=== PATIENT | male | born 1960 | race Caucasian/White ===

== ENCOUNTER 2017-11-27 12:04 | Outpatient (CLI) | payer MEDICAID ==
[2017-11-27 10:55] LABS: HEMATOCRIT 39.6 % (42.0-54.0); HEMOGLOBIN 13.8 g/dL (13.5-17.5); MCH 29.7 pg (26.0-34.0); MCHC 34.8 g/dL (31.0-37.0); MCV 85.3 fL (80.0-100.0); MEAN PLATELET VOLUME 9.3 fL (7.4-10.4); RBC 4.64 10x6/uL (4.20-6.10)
[~2017-11-27 12:04] MED LIST: ULORIC40 MG PO; ZYLOPRIM100 MG PO
[2017-12-13] MEDS ORDERED: HYZAAR 100-25 T1 TAB PO (11:57)
[2017-12-13] MEDS ORDERED: NORVASC5 MG PO (11:57)
[2017-12-13] MEDS ORDERED: METOPROLOL TART50 MG PO (11:57)
[2017-12-13] MEDS ORDERED: COLCRYS0.6 MG PO (11:58)
== END 2017-11-27 23:59 | disposition home or self-care (01) ==
LOC: D.OPS 12:04 → EDSTATUS 11-28 07:30 → D.SDCHOLD 11-28 07:30
PROVIDERS: Anesthesiology
DX: Z01.812 Encounter for preprocedural laboratory examination (principal); Z53.9 Procedure and treatment not carried out, unspecified reason

== ENCOUNTER 2017-12-15 05:00 | Day surgery (SDC) | payer BC ==
[2017-12-13 12:24] LABS: HEMATOCRIT 38.9 % (42.0-54.0); HEMOGLOBIN 13.7 g/dL (13.5-17.5); MCH 29.7 pg (26.0-34.0); MCHC 35.2 g/dL (31.0-37.0); MCV 84.2 fL (80.0-100.0); MEAN PLATELET VOLUME 9.1 fL (7.4-10.4); RBC 4.62 10x6/uL (4.20-6.10); RDW 13.6 % (11.5-14.5)
[2017-12-13 13:09] LABS: CALC OSMOLALITY 282 mosm/kg (275-300); CARBON DIOXIDE 26.3 mmol/L (21.0-32.0); CHLORIDE - SERUM 103 mmol/L (98-107); GLUCOSE 128 mg/dL (74-106); POTASSIUM - SERUM 3.6 mmol/L (3.5-5.1); SODIUM 140 mmol/L (136-145); UREA NITROGEN 18 mg/dL (7-18); eGFR NON AFRICAN AMERICAN 81 mL/min (90-120)
[~2017-12-15] VITALS: Ht 175.3 cm; Wt 99.1 kg
--- NOTE | ~2017-12-15 | OP ---
PATIENT NAME: JUAN ISABEL MEDICAL RECORD: [id number] :58 LOCATION:[facility] ADMISSION DATE: SURGEON: LESLI COLEBRT MD DATE OF OPERATION: 12/15/2017 SURGEON: Lesli Colbert MD PREOPERATIVE DIAGNOSIS: Pseudotumor cerebri with failed lumbar peritoneal shunt. POSTOPERATIVE DIAGNOSIS: Creation of ventriculoperitoneal shunt. PROCEDURE: Creation of ventriculoperitoneal shunt with high pressure valve. DESCRIPTION AND TECHNIQUE: After induction of general endotracheal anesthesia, the patient's scalp, neck, chest, abdomen were prepped and draped in usual sterile fashion. A curvilinear scalp incision was carried out around the right Kirstin's point. A counterincision was carried out over the right mastoid. An abdominal incision was carried out 2 cm above the umbilicus, left of midline, 2 cm. At the abdominal incision, dissection took place through the subcutaneous fat until the anterior rectus sheath was encountered. This was incised with Metzenbaum scissors. The rectus muscle was spread. Posterior rectus sheath was incised and then the peritoneum was incised as well. Several loops of small bowel were identified to confirm the peritoneal cavity. A Midas Moses drill was used to create a brenna hole at right side of Kirstin's point. A peritoneal catheter was tunneled from the scalp incision to the mastoid incision and then a tunneling device was used to tunnel from the mastoid incision to the abdominal incision. Peritoneal catheter was threaded through the tunneling device. Next, a ventricular catheter was attached to the level C valve. The festus was cauterized with bipolar cautery. A large brain needle was used to cannulate the right frontal horn without difficulty. There was brisk egress of CSF from the right frontal horn. The brain needle was removed and then the majority of the catheter was tunneled on the same tract into the right frontal horn. There was excellent egress of CSF from the peritoneal catheter tip. The galea was reapproximated with interrupted 2-0 Vicryl suture. The skin was closed with cyn. Counterincision of the fascia was closed with 3-0 Vicryl suture. Skin was closed with cyn at the abdominal incision. The anterior and posterior rectus sheaths were closed with 3-0 Vicryl suture, the subdermal layer closed with 3-0 Vicryl suture. The skin was closed with cyn. A sterile dressing was applied to all 3 wounds. The patient was awakened in good condition and taken to recovery. All counts were reported as correct. Estimated blood loss was minimal. TRANSINT:[id number] Voice Confirmation ID: [id number] DOCUMENT ID: [id number] LESLI COLBERT MD at 1606 CC: [id number] DICTATION DATE: 12/20/17 0905 EDGE BRUSHER: 12/20/17 1159 [facility] 12/16/[address] [address]
[~2017-12-15 05:00] MED LIST changes: +COLCRYS0.6 MG PO; +HYZAAR 100-25 T1 TAB PO; +METOPROLOL TART50 MG PO; +NORVASC5 MG PO
[2017-12-15 06:08] VITALS: BP 153/94; BMI 32.2
[2017-12-15 12:34] VITALS: Ht 175.3 cm; Wt 99.1 kg
[2017-12-15 18:02] VITALS: BP 139/73
[2017-12-15 19:41] VITALS: BP 144/78
[2017-12-15 23:35] VITALS: BP 123/77
[2017-12-16 04:22] VITALS: BP 133/78
[2017-12-16 07:42] VITALS: BP 146/88
[2017-12-16 12:24] VITALS: BP 147/95
[2017-12-16] MEDS ORDERED: HYDROCODONE-APA1 TAB PO (15:15)
== END 2017-12-16 16:34 | disposition home or self-care (01) ==
LOC: D.MS 05:00 → D.OPS 05:00 → D.SDCHOLD 05:00 → D.MS 05:00 → D.SDCHOLD 07:30 → EDSTATUS 10:00 → D.SDCHOLD 10:00 → D.MS 10:49 → D.SDCHOLD 10:49 → D.OPS 12-16 16:34 → D.MS 12-16 16:34
PROVIDERS: Anesthesiology
DX: G93.2 Benign intracranial hypertension (principal); R51 Headache; I10 Essential (primary) hypertension; K21.9 Gastro-esophageal reflux disease without esophagitis; Z01.812 Encounter for preprocedural laboratory examination

== ENCOUNTER 2018-05-03 09:43 | Outpatient (CLI) | payer BC ==
[~2018-05-03] VITALS: Ht 175.3 cm; Wt 97.7 kg
--- NOTE | ~2018-05-03 | HP ---
PATIENT: JUAN SINGER MEDICAL RECORD: [id number] ACCOUNT: [id number] LOCATION:[place] : 58 ADMISSION DATE: 05/03/18 HISTORY AND PHYSICAL EXAMINATION ADMITTING DIAGNOSES: 1. Angina. 2. Coronary artery disease. 3. Hypertension. 4. Hyperlipidemia. HISTORY OF PRESENT ILLNESS: Mr. Singer presents with anginal symptomatology in an increasing fashion. He has a history of high blood pressure, hyperlipidemia, family history of coronary artery disease. PHYSICAL EXAMINATION: GENERAL APPEARANCE: Well-nourished, well-developed, appears stated age. Level of distress, comfortable. PSYCHIATRIC: Mental status, alert, normal affect. Orientation, oriented to time, place and person. EYES: Lids and conjunctiva, noninjected. No discharge, no pallor. ENT: Lips, teeth, gums, normal dentition. Oropharynx, no cyanosis, no pallor. NECK: Carotid arteries, bilateral normal upstroke, no bruits, no thrills. JUGULAR VEINS: No jugular venous pressure or distention. CERVICAL LYMPH NODES: Nontender, nonenlarged. THYROID: Not enlarged. Nontender. No nodules. LUNGS: Respiratory effort, unlabored. CHEST: Normal curvature. No thoracic deformity. No chest wall tenderness. Percussion, resonant. Auscultation, clear. No wheezes, no rales, no rhonchi. CARDIOVASCULAR: Precordial exam, nondisplaced. No heaves or pericardial thrills. Rate and rhythm, regular. Heart sounds, normal S1, normal S2. No S3, no gallop, no rub. Systolic murmur, not heard. Diastolic murmur, not heard. EXTREMITIES: No cyanosis, no edema. Peripheral pulses, full and equal in all extremities, except as noted. No bruits appreciated. ABDOMEN: Soft, nondistended. Normal aorta. No bruit. Nontender. No masses. Liver, nontender, no hepatomegaly. Spleen, nontender, no splenomegaly. MUSCULOSKELETAL: No joint tenderness. No joint swelling. No erythema. NEUROLOGICAL: Normal gait, normal strength, normal tone. SKIN: Warm and dry. REVIEW OF SYSTEMS: The patient reports easy bruising but reports no swollen glands. The patient reports no fever, no night sweats, no significant weight gain, no significant weight loss. No significant exercise tolerance. The patient reports no dry eyes, no irritation, no vision change. Patient reports no difficulty hearing and no ear pain. Patient reports no frequent nose bleeds or nose and sinus problems. Patient reports on arm pain on exertion. No shortness of breath while lying down. No history of heart murmur. Patient reports no cough, no wheezing or coughing up blood. Patient reports no abdominal pain, no vomiting. Normal appetite. No diarrhea and not vomiting blood. No nausea and no constipation. Patient reports no incontinence. No difficulty urinating. No hematuria. No increased frequency. Patient reports no muscle aches. No weakness, no arthralgias, no back pain. No swelling of the extremities. Patient reports no abnormal mole, no jaundice, no rashes. Reports no loss of consciousness. No weakness and no numbness. No seizures, dizziness, or headaches. The patient reports no depression, no sleep disturbance, feeling HISTORY AND PHYSICAL [id number] JUAN SINGER ROSALINDA safe in a relationship and no alcohol abuse. Patient reports on fatigue. Reports no runny nose or sinus pressure. No itching, no hives, and no frequent sneezing. OVERALL IMPRESSION: Increasing anginal symptomatology, most likely is hemodynamically significant coronary artery disease. We will proceed with coronary angiography. Further care depends upon findings of the angiography. TRANSINT:[id number] Voice Confirmation ID: [id number] DOCUMENT ID: [id number] COTY ALVES MD at 1834 CC: [id number] DICTATION DATE: 05/03/18 1359 STUDIO SALES ASSOCIATE: 05/03/18 1407 DEP CLI 05/03/18 [place] [id number] [place] [id number]
--- NOTE | ~2018-05-03 | OP ---
PATIENT NAME: JUAN ISABEL MEDICAL RECORD: [id number] :58 LOCATION:[facility] ADMISSION DATE: SURGEON: COTY ALVES MD DATE OF OPERATION: 05/03/2018 PROCEDURES: 1. PTCA and stent of LAD. 2. Intravascular ultrasound of the LAD. 3. Intravascular ultrasound of the left circumflex. 4. Left heart catheterization. 5. Selective coronary angiography. 6. Left ventriculogram. INDICATION: Angina and coronary artery disease. PROCEDURE PERFORMED: After informed consent was obtained and after detailed explanation of risks, benefits as well as alternative therapies, the patient elected to proceed with angiogram and angioplasty. The right radial area was prepped and draped in normal sterile fashion. Right radial artery was cannulated via modified Seldinger technique with the placement of 6-Upper Sorbian sheath. All catheters exchanged this sheath. FINDINGS: The left ventriculogram was performed in standard 30-degree CHOE view, reveals good cardiac wall motion throughout all segments. Overall ejection fraction estimated 60%. SELECTIVE CORONARY ANGIOGRAPHY: 1. Left main is with no significant angiographic disease. 2. Right coronary has mild irregularities, but no flow-limiting stenosis. 3. Left circumflex has mild irregularities, questionable hazy area in the mid vessel, however, intravascular ultrasound reveals there is no greater than 20% to 30% stenosis. 4. The left anterior descending has greater than 80% stenosis confirmed by intravascular ultrasound in 2 areas of the mid vessel. PTCA AND STENT OF THE LAD: The stents used were 2.5 x 15 and 2.5 x 12, both Jaswinder drug-eluting stents. The result was 0% residual stenosis. OVERALL IMPRESSION: Successful PTCA and stent of the LAD going from 80% initial stenosis times 2 to 0% residual. TRANSINT:[id number] Voice Confirmation ID: [id number] DOCUMENT ID: [id number] COTY ALVES MD at 2294 CC: [id number] DICTATION DATE: 05/03/18 1344 MORTGAGE OR LOAN UNDERWRITER: 05/03/18 1353 DEP CLI 05/03/18 [place] [id number] [place] [id number]
--- NOTE | ~2018-05-03 | HEMODYNAMI ---
PATIENT:JUAN ISABEL ROSALINDA MEDICAL RECORD: [id number] : 58 LOCATION:[place] ADMISSION DATE: 05/03/18 Generatedon:05/03/201813:47 Patient name: JUAN ISABEL Patient #: [id number] SSN: : 1960 Date of study: 05/03/2018 Page: Of Hemodynamic Procedure Report Patient Data Patient Demographics Procedure consent was obtained First Name: JUAN Gender: Male Last Name: CHALO : 1960 Middle Initial: ROSALINDA Age: 58 year(s) Patient #: [id number] Race: Unknown Additional ID: [id number] Contact details [address]: [address] [place] [address] State: [place] City: [place] Zip code: [address] Past Medical History Allergies Allergen Reaction Date Comments Reported Other allergy 05/03/2018 CODEINE Admission Admission Data Admission Date: 05/03/2018 Admission Time: 9:43 Lab Results Lab Result Date: 05/03/2018 Lab Result Time: 0:00 Biochemistry Name Units Result Min Max BUN mg/dl 13 --(--*-)-- 7 18 Creatinine mg/dl 0.9 --(-*--)-- 0.6 1.3 CBC Name Units Result Min Max Hemoglobin g/dl 14 --(*---)-- 13.5 17.5 Procedure Procedure Types Cath Procedure Diagnostic Procedure LHC LH w/Coronaries FFR/IVUS Intra-Coronary IVUS Initial Sedation Charges Moderate Sedation up to 15 minutes PCI Procedure Coronary Stent Coronary Stent Initial Procedure Description Procedure Date Procedure Date: 05/03/2018 Procedure Start Time: 13:22 Procedure End Time: 13:46 Procedure Staff Name Function Edgar Clemente MD Performing Physician Donna Awan RT Monitor Amina Crow RT Scrub Arielle Bass RN Nurse Procedure Data Cath Procedure Fluoroscopy Diagnostic fluoroscopy Total fluoroscopy Time: 8.4 time: 8.4 min min Diagnostic fluoroscopy Total fluoroscopy dose: dose: 1107 mGy 1107 mGy Contrast Material Contrast Material Type Amount (ml) Isovue 300 97 Entry Location Entry Primary Successful Side Size Upsize Upsize Entry Closure Balderrama ccessful Closure Location (Fr) 1 (Fr) 2 (Fr) Remarks Device Remarks Radial Right 6 Fr Mechanical TR artery Short Compression Estimated blood loss: 10 ml Procedure Complications No complications Procedure Medications Medication Administration Route Dosage Oxygen etCO2 Nasal cannula 2 l/min Lidocaine 2% added to field 20 Heparin Flush Bag added to field 2 bags (1000units/500ml NS) 0.9% NaCl I.V. 100 ml/hr Radial Cocktail I.A. 1 syringe (Verapomil 2mg/Nitro 400mcg/Heparin 1500units) Versed I.V. 2 mg Fentanyl I.V. 100 mcg Versed I.V. 1 mg Fentanyl I.V. 50 mcg Versed I.V. 1 mg Fentanyl I.V. 50 mcg Heparin Bolus I.V. 4000 units Versed I.V. 1 mg Hemodynamics Rest HGB: 14 (g/dl) Heart Rate: 88 (bpm) Snapshots Pre Cath Intra NCS Post Cath Vital Signs Time Heart Resp SPO2 etCO2 NIBP (mmHg) Rhythm Pain Sedation Rate (ipm) (%) (mmHg) Status Level (bpm) 13:00:00 87 21 98 23.9 133/86(119) NSR 0 (11) 10(A) , No pain 13:04:10 77 18 97 28.4 124/82(101) NSR 0 (11) 10(A) , No pain 13:08:16 80 15 97 26.9 125/88(103) NSR 0 (11) 10(A) , No pain 13:12:22 81 17 98 28.4 117/85(107) NSR 0 (11) 10(A) , No pain 13:16:26 79 15 97 30.7 121/84(101) NSR 0 (11) 10(A) , No pain 13:20:31 81 16 98 29.2 117/83(100) NSR 0 (11) 10(A) , No pain 13:24:37 92 15 96 31.5 109/75(89) NSR 0 (11) 9(A) , No pain 13:28:39 92 12 95 31.4 114/81(96) NSR 0 (11) 9(A) , No pain 13:32:43 90 18 97 23.9 109/84(103) NSR 0 (11) 9(A) , No pain 13:36:44 89 16 97 37.4 101/79(97) NSR 0 (11) 9(A) , No pain 13:40:44 85 15 96 32.2 112/80(97) NSR 0 (11) 9(A) , No pain 13:44:46 87 16 99 41.2 118/82(100) NSR 0 (11) 10(A) , No pain Medications Time Medication Route Dose Verified Delivered Reason Not es Effectiveness by by 12:58:26 Oxygen etCO2 2 l/min Edgardory Lauraie used for Nasal Chyna Bass RN procedure cannula 12:58:33 Lidocaine 2% added 20ml Edgardory Hernández for local to vial Chyna Clemente MD anesthetic field 12:58:39 Heparin Flush added 2 bags Edgar Hernández used for Bag to Chyna Clemente MD procedure (1000units/500ml field NS) 12:58:48 0.9% NaCl I.V. 100 Edgar Guzmán Per physician ml/hr Chyna Bass RN 13:21:17 Versed I.V. 2 mg Edgar Guzmán for sedation Chyna Bass RN 13:21:24 Fentanyl I.V. 100 mcg Edgar Guzmán for sedation Chyna Bass RN 13:23:50 Radial Cocktail I.A. 1 Edgar Hernández for (Verapomil syringe Chyna Clemente MD vasodilation 2mg/Nitro 400mcg/Heparin 1500units) 13:25:11 Versed I.V. 1 mg Edgar Guzmán for sedation Chyna Bass RN 13:25:14 Fentanyl I.V. 50 mcg Edgar Guzmán for sedation Chyna Bass RN 13:28:18 Versed I.V. 1 mg Edgar Guzmán for sedation Chyna Bass RN 13:28:23 Fentanyl I.V. 50 mcg Edgar Lauraie for sedation Chyna Bass RN 13:29:26 Heparin Bolus I.V. 4000 Edgardory Lauraie for alejandro ified units Chyna Bass RN anticoagulation with dr clemente 13:39:22 Versed I.V. 1 mg Edgar Guzmán for sedation Chyna Bass RN Procedure Log Time Note 12:41:25 Buffie Bass RN sent for patient. Start room use. 12:41:26 Time tracking: Regular hours (M-F 7:00 - 5:00) 12:41:30 Plan of Care:Hemodynamics will remain stable., Cardiac rhythm will remain stable., Comfort level will be maintained., Respiratory function will remain adequate., Patient/ family verbilizes understanding of procedure., Procedure tolerated without complication., Recovers from procedure without complications.. 12:41:32 Signed procedure consent form obtained from patient. 12:47:41 Patient received from Pre/Post Procedure Room to CCL 2 Alert and oriented. Tansferred to table in Supine position. 12:47:42 Warm blankets applied, and ruben hugger turned on for patient comfort. 12:47:43 Correct patient and procedure confirmed by team. 12:47:44 ECG and BP/O2 sat monitors applied to patient. 12:58:26 Oxygen 2 l/min etCO2 Nasal cannula was administered by Arielle Bass RN; used for procedure; 12:58:33 Lidocaine 2% 20ml vial added to field was administered by Edgar Clemente MD; for local anesthetic; 12:58:39 Heparin Flush Bag (1000units/500ml NS) 2 bags added to field was administered by Edgar Clemente MD; used for procedure; 12:58:48 0.9% NaCl 100 ml/hr I.V. was administered by Arielle Bass RN; Per physician; 12:58:57 Vital chart was started 13:00:00 Baseline sample Acquired. 13:00:21 Rhythm: sinus rhythm 13:00:22 Full Disclosure recording started 13:00:43 H&P Date Dictated: 05/03/2018 Within 30 days and on chart., H&P Addendum completed by physician on day of procedure. (MUST COMPLETE FOR ALL OUTPATIENTS). 13:00:48 Pre-procedure instructions explained to patient. 13:00:50 Family in waiting room. 13:00:52 Patient NPO since Midnight. 13:01:07 Patient allergic to Other allergyCODEINE 13:01:30 Is the patient allergic to Iodine/contrast media? No. 13:01:32 Was the patient premedicated? Yes 13:01:35 Is patient on blood thinner?Yes 13:01:48 ACC The patient was administered the following blood thiners within the last 24 hours: ACCPlavix 13:01:50 Patient diabetic? No. 13:01:57 Previous problem with sedation/anesthesia? No ? 13:02:00 Snore? Yes 13:02:02 Sleep apnea? No 13:02:10 Dentures? No ? 13:02:15 Patient pain scale 0/10 ?. 13:02:21 IV patent on arrival in left forearm with 0.9% NaCl at [facility]. 13:03:01 Lab Result : BUN 13 mg/dl 13:03:01 Lab Result : Creatinine 0.9 mg/dl 13:03:01 Lab Result : Hemoglobin 14 g/dl 13:03:08 Lab results completed and on chart. 13:03:15 Right Radial & Right Groin area was prepped with chlora-prep and draped in sterile fashion 13:03:17 Alarms reviewed by R. N. 13:03:17 Alarms reviewed by R. N. 13:03:18 Sharps counted by scrub and verified by R.N. 13:03:20 Physician paged 13:20:01 Physician arrived 13:20:02 --------ALL STOP TIME OUT------ 13:20:03 Final Timeout: patient, procedure, and site verified with staff and physician. All members of the team are in agreement. 13:20:06 Right Radial & Right Groin site verified by team. 13:20:10 Physical assessment completed. ASA score P 2 - A patient with mild systemic disease as per Edgar Clemente MD. 13:20:16 Sedation plan: IV Moderate Sedation Medication:Versed, Fentanyl 13:20:51 Use device set Radial Dx or PCI 13:21:01 ACIST Syringe (91126) opened to sterile field. 13:21:01 Medline Cath Pack ([id number]) opened to sterile field. 13:21:03 Bag Decanter () opened to sterile field. 13:21:04 DIAGNOSTIC WIRE .035 260cm J wire (930625) opened to sterile field. 13:21:05 ACIST Hand Control (52942) opened to sterile field. 13:21:05 ACIST Manifold (07574) opened to sterile field. 13:21:07 Tegaderm 4 x 4 (1626W) opened to sterile field. 13:21:08 MBrace Wrist Support ([id number]) opened to sterile field. 13:21:17 Versed 2 mg I.V. was administered by Arielle Bass RN; for sedation; 13:21:18 TR BAND Standard ([id number]) opened to sterile field. 13:21:24 Fentanyl 100 mcg I.V. was administered by Arielle Bass RN; for sedation; 13:21:25 SHEATH 6Fr Prelude Radial ([id number]) opened to sterile field. 13:21:31 NEEDLE Cook 21G 4cm Radial (I80061) opened to sterile field. 13:21:35 Procedure started. 13:22:02 Local anesthetic to right radial artery with Lidocaine 2% by Edgar Clemente MD.INITIAL ACCESS ONLY 13::34 A 6 Fr Short sheath was inserted into the Right Radial artery 13::47 J wire advanced. 13:23:47 LV angiography performed. 13:23:50 Radial Cocktail (Verapomil 2mg/Nitro 400mcg/Heparin 1500units) 1 syringe I.A. was administered by Edgar Clemente MD; for vasodilation; 13:23:54 EF : 55 % 13:23:57 LCA angiography performed. 13:25:11 Versed 1 mg I.V. was administered by Arielle Bass RN; for sedation; 13:25:14 Fentanyl 50 mcg I.V. was administered by Arielle Bass RN; for sedation; 13:25:28 RCA angiography performed. 13:26:39 Catheter removed. 13:27:55 GUIDE 6FR EBU 3.5 catheter ([id number]) opened to sterile field. 13:27:56 Cookson [place] IVUS Catheter (80756H) opened to sterile field. 13:27:57 CHOICE PT Extra Support 182cm wire ([id number]) opened to sterile field. 13:27:58 INFLATOR Merit BasixCompak (EX2913) opened to sterile field. 13:28:02 Proceeding to intervention. 13:28:15 6 Fr ebu 3.5 guide catheter was inserted over the wire 13:28:18 Versed 1 mg I.V. was administered by Arielle Bass RN; for sedation; 13:28:22 CHOICE PT EX wire advanced. 13:28:23 Fentanyl 50 mcg I.V. was administered by Arielle Bass RN; for sedation; 13:28:33 Wire advanced across lesion. 13:28:33 Wire advanced across lesion. 13:29:00 IVUS catheter advanced over wire. 13:29:26 Heparin Bolus 4000 units I.V. was administered by Arielle Bass RN; for anticoagulation; verified with dr clemente 13:31:11 Wire redirected to lad. 13:37:51 IVUS catheter removed over wire. 13:39:22 Versed 1 mg I.V. was administered by Arielle Bass RN; for sedation; 13:39:39 Place stent Inflation Number: 1 A PARK RX 2.5 x 15 stent ([id number]) was prepped and advanced across the Dist LAD. The stent was deployed at 11 GARETH for 0:06 (min:sec). 13:39:45 Inflation number: 2 The stent balloon was then re-inflated across the Dist LAD to 13 GARETH for 0:00 (min:sec). 13:41:01 Place stent Inflation Number: 1 A PARK RX 2.5 x 12 stent ([id number]) was prepped and advanced across the Mid LAD. The stent was deployed at 17 GARETH for 0:10 (min:sec). 13:43:06 Wire removed. 13:43:07 Guide catheter removed. 13:43:25 Sheath removed intact; hemostasis achieved with Mechanical Compression to the Right Radial artery. 13:43:28 Procedure ended.(Physican Out) 13:43:52 Fluoroscopy time 08.40 minutes. 13:44:00 Fluoroscopy dose: 1107 mGy 13:44:00 Flurop Dose total: 1107 13:44:05 Contrast amount:Isovue 300 97ml. 13:44:12 TR band inflated with 11cc of air. 13:44:14 Insertion/operative site no bleeding no hematoma. 13:44:23 Post-op/insertion site Right Radial artery dressed using a 4 x 4 and Tegaderm. 13:44:26 Post Procedure Pulses reassessed and unchanged 13:44:29 Post-procedure physical assessment completed. ASA score P 2 - A patient with mild systemic disease as per Edgar Clemente MD. 13:44:34 Post procedure rhythm: unchanged. 13:44:39 Estimated blood loss: 10 ml 13:44:41 Post procedure instruction explained to patient.Patient verbalizes understanding. 13:45:26 Procedure type changed to Cath procedure, Diagnostic procedure, LHC, LHC w/Coronaries, FFR/IVUS, Intra-Coronary IVUS Initial, Sedation Charges, Moderate Sedation up to 15 minutes, PCI procedure, Coronary Stent, Coronary Stent Initial 13:45:31 Procedure and supply charges have been captured, reviewed, submitted and are correct. 13:46:43 Procedure Complication : No complications 13:46:47 Vital chart was stopped 13:46:47 See physician's report for complete and final results. 13:46:50 Report given to Pre/Post Procedure Room. 13:46:54 Patient transfered to Pre/Post Procedure Room with Stretcher. 13:46:57 Procedure ended. 13:46:57 Full Disclosure recording stopped 13:47:02 End room use (Document Last) 13:47:17 ACC-PCI Only Patient was given prescriptions, or instructed by Edgar Clemente MD to start/continue the following medications upon discharge: Plavix Intervention Summary Intervention Notes Time ActionType Lesion and Equipment Used Action# Pressure Duration Attributes 13:39:39 Place stent Dist LAD PARK RX 2.5 x 1 11 00:06 15 stent ([id number]) 13:39:45 Reinflate Dist LAD PARK RX 2.5 x 2 13 00:00 stent 15 stent balloon ([id number]) 13:41:01 Place stent Mid LAD PARK RX 2.5 x 1 17 00:10 12 stent ([id number]) Device Usage Item Name Manufacture Quantity Catalog Number Hospital Part Current Minimal Lot# / Charge Number Stock Stock Serial# Code ACIST Syringe Acist 1 85084 827571 006391 329642 20 (49808) Medical Systems Inc Medline Cath Cardinal 1 [id number] 098785 88244 786516 5 [facility] ([id number]) Bag Decanter Microtek 1 2001S 965682 05195 145223 5 () Medical Inc. DIAGNOSTIC WIRE St Brian 1 320864 779285 730796 617050 30 .035 260cm J wire (167406) ACIST Hand Acist 1 68055 332393 119206 317793 5 Control (37600) [employer] Inc ACIST Manifold Acist 1 25442 550891 970029 912475 5 (35918) Medical Systems Inc Tegaderm 4 x 4 3M 1 1626W 403900 513997 270391 5 (1626W) MBrace Wrist Advanced 1 140-0250-00 695464 23673 815348 5 Support Vascular ([id number]) Dynamics TR BAND Terumo 1 [id number] 925501 963116 119586 40 Standard ([id number]) SHEATH 6Fr Merit 1 [id number] 947446 325100 029907 5 Prelude Radial Medical ([id number]) NEEDLE Cook 21G Cook Medical 1 [id number] 962700 029892 391786 5 4cm Radial (T14544) GUIDE 6FR EBU Medtronic 1 [id number] 016171 26554 164834 3 3.5 catheter ([id number]) Cookson Cookson 1 09120W 832608 126714 936446 8 [place] IVUS Catheter (81201M) CHOICE PT Extra [place] 1 [id number] 379890 386671 203862 5 Support 182cm Scientific wire ([id number]) INFLATOR Merit Merit 1 PW1301 050352 473081 324453 15 BasixCompak Medical (UK4388) PARK RX 2.5 x Medtronic 1 [id number] 117086 9734422 538182 5 [id number] 15 stent ([id number]) PARK RX 2.5 x Medtronic 1 [id number] 159702 6554065 861967 5 [id number] 12 stent ([id number]) Signature Audit [place] Stage Time Signature Unsigned Intra-Procedure 05/03/2018 Donna Awan 1:47:50 PM RT(R) Signatures Monitor : Donna Awan Signature : RT Date : Time : [facility] [address] [place] [address]
[~2018-05-03 09:43] MED LIST changes: +HYDROCODONE-APA1 TAB PO
[2018-05-03] MEDS ORDERED: AMBIEN5 MG PO (10:21)
[2018-05-03 10:37] LABS: BASOPHILS 0.3 % (0-2); EOSINOPHILS 1.3 % (0-7); HEMATOCRIT 38.8 % (42.0-54.0); IMMATURE GRANULOCYTES 0.1 % (0-5); LYMPHOCYTES 20.2 % (15-50); MCHC 36.1 g/dL (31.0-37.0); MCV 83.3 fL (80.0-100.0); MEAN PLATELET VOLUME 9.3 fL (7.4-10.4); MONOCYTES 8.2 % (2-11); NEUTROPHILS 69.9 % (40-80); PLATELET COUNT 218 10x3/uL (130-400); RBC 4.66 10x6/uL (4.20-6.10); WBC 8.8 10x3/uL (4.8-10.8)
[2018-05-03 10:39] VITALS: BP 142/94; Ht 175.3 cm; Wt 97.7 kg
[2018-05-03 10:47] LABS: CALC OSMOLALITY 285 mosm/kg (275-300); CALCIUM 9.3 mg/dL (8.5-10.1); CHLORIDE - SERUM 105 mmol/L (98-107); CREATININE - SERUM 0.9 mg/dL (0.6-1.3); GLUCOSE 109 mg/dL (74-106); POTASSIUM - SERUM 3.5 mmol/L (3.5-5.1); SODIUM 143 mmol/L (136-145); UREA NITROGEN 13 mg/dL (7-18); eGFR NON AFRICAN AMERICAN > 90 mL/min (90-120)
[2018-05-03] MEDS ORDERED: PLAVIX75 MG PO (14:33)
== END 2018-05-03 18:00 | disposition home or self-care (01) ==
LOC: D.CATH 09:43
PROVIDERS: Internal Medicine Interventional Cardiology
DX: I25.119 Atherosclerotic heart disease of native coronary artery with unspecified angina pectoris (principal); I10 Essential (primary) hypertension; E78.5 Hyperlipidemia, unspecified; Z01.812 Encounter for preprocedural laboratory examination

== ENCOUNTER 2018-07-26 13:25 | Inpatient (IN) | payer BC ==
[~2018-07-26] VITALS: Ht 175.3 cm; Wt 99.1 kg
--- NOTE | ~2018-07-26 | MORECARE ---
CASE MANAGEMENT DISCHARGE SUMMARY PATIENT: JUAN ISABEL ROSALINDA UNIT: [id number] ADM DATE: 07/26/18 AGE: 58 : 58 SEX: M ROOM/BED: D.1213 AUTHOR: ANNA,DOC PHYSICIAN: REFERRING PHYSICIAN: DAVINA CLAROS MD DATE OF SERVICE: 08/03/18 Discharge Plan Patient Name: JUAN ISABEL Facility: [facility]:[place] : 1960 Planned Disposition: Home Anticipated Discharge Date: Discharge Date: 08/02/2018 Expected LOS: Initial Reviewer: [email or web address] Initial Review Date: 07/26/2018 Generated: 08/03/18 10:05 am Comments DCP- Discharge Planning Updated by [email or web address]: Elsy Maya on 07/30/18 11:[address] Patient Name: JUAN ISABEL Admission Status: ER Accout number: [id number] Admission Date: 07-26-2018 : 1960 Admission Diagnosis:CELLULITIS OF UNSPECIFIED PART OF LIMB Attending: DAVINA CLAROS Current LOS: 4 Anticipated DC Date: Planned Disposition: Home Primary Insurance: Consulted EXCHANGE Discharge Planning Comments: CM met with patient and at bedside after obtaining verbal consent. Patient plans on returning home upon discharge with his . He denies any discharge needs at this time. He states that he hasn't ever had to use any Home Health agency in the past. CM explained process if it is needed upon discharge. CM will continue to follow and assist as needed with discharge planning / needs. Intel Recruiter: Elsy Maya DCPIA - Discharge Planning Initial Assessment Updated by [email or web address]: Elsy Maya on 07/30/18 12:19 pm * Is the patient Alert and Oriented? Yes * How many steps to enter\exit or inside your home? * PCP Dr. Keller * [facility] * Preadmission Environment Home with Family * ADLs Independent * Equipment None * List name and contact numbers for known caregivers / representatives who currently or will assist patient after discharge: Rona Isabel - - [phone] * Verbal permission to speak to the caregivers and representatives has been obtained from the patient. Yes * Community resources currently utilized None * Additional services required to return to the preadmission environment? No * Can the patient safely return to the preadmission environment? Yes * Has this patient been hospitalized within the prior 30 days at any hospital? No Last DP export: 07/30/18 11:30 Patient Name: JUAN ISABEL Page [phone] at 0905 All edits/amendments must be made on the electronic document DICTATION DATE: 08/03/18904 SAWMILL HAND: DIONICIO 08/03/18904 RPT#: [id number] DC DATE:08/02/18 STATUS: DIS IN [facility] [address] [place] [address] END OF REPORT
--- NOTE | ~2018-07-26 | MORECARE ---
CASE MANAGEMENT DISCHARGE SUMMARY PATIENT: JUAN ISABEL ROSALINDA UNIT: [id number] ADM DATE: 07/26/18 AGE: 58 : 58 SEX: M ROOM/BED: D.1213 AUTHOR: BRYNN CASTILLO PHYSICIAN: REFERRING PHYSICIAN: DAVINA CLAROS MD DATE OF SERVICE: 07/30/18 Discharge Plan Patient Name: JUAN ISABEL [facility] : 1960 Planned Disposition: Home Anticipated Discharge Date: Discharge Date: Expected LOS: Initial Reviewer: [email or web address] Initial Review Date: 07/26/2018 Generated: 07/30/18 1:22 pm DCPIA - Discharge Planning Initial Assessment Updated by [email or web address]: Elsy Maya on 07/30/18 12:19 pm * Is the patient Alert and Oriented? Yes * How many steps to enter\exit or inside your home? * PCP Dr. Keller * [facility] * Preadmission Environment Home with Family * ADLs Independent * Equipment None * List name and contact numbers for known caregivers / representatives who currently or will assist patient after discharge: Rona Isabel - - [phone] * Verbal permission to speak to the caregivers and representatives has been obtained from the patient. Yes * Community resources currently utilized None * Additional services required to return to the preadmission environment? No * Can the patient safely return to the preadmission environment? Yes * Has this patient been hospitalized within the prior 30 days at any hospital? No Patient Name: JUAN ISABEL Page 10746 at 1223 All edits/amendments must be made on the electronic document DICTATION DATE: 07/30/18 1222 SALVAGE SUPERVISOR: DIONICIO 07/30/18 1222 RPT#: [id number] DC DATE: STATUS: ADM IN [facility] [address] [place] [address] END OF REPORT
--- NOTE | ~2018-07-26 | MORECARE ---
CASE MANAGEMENT DISCHARGE SUMMARY PATIENT: JUAN ISABEL ROSALINDA UNIT: [id number] ADM DATE: 07/26/18 AGE: 58 : 58 SEX: M ROOM/BED: D.1213 AUTHOR: ANNA,DOC PHYSICIAN: REFERRING PHYSICIAN: DAVINA CLAROS MD DATE OF SERVICE: 07/30/18 Discharge Plan Patient Name: JUAN ISABEL Facility: [facility]:[place] : 1960 Planned Disposition: Home Anticipated Discharge Date: Discharge Date: Expected LOS: Initial Reviewer: [email or web address] Initial Review Date: 07/26/2018 Generated: 07/30/18 1:30 pm Comments DCP- Discharge Planning Updated by [email or web address]: Elsy Maya on 07/30/18 11:[address] Patient Name: JUAN ISABEL Admission Status: ER Accout number: [id number] Admission Date: 07-26-2018 : 1960 Admission Diagnosis:CELLULITIS OF UNSPECIFIED PART OF LIMB Attending: DAVINA CLAROS Current LOS: 4 Anticipated DC Date: Planned Disposition: Home Primary Insurance: [employer] EXCHANGE Discharge Planning Comments: CM met with patient and at bedside after obtaining verbal consent. Patient plans on returning home upon discharge with his . He denies any discharge needs at this time. He states that he hasn't ever had to use any Home Health agency in the past. CM explained process if it is needed upon discharge. CM will continue to follow and assist as needed with discharge planning / needs. Materials Engineering Technician: Elsy Maya DCPIA - Discharge Planning Initial Assessment Updated by [email or web address]: Elsy Maya on 07/30/18 12:19 pm * Is the patient Alert and Oriented? Yes * How many steps to enter\exit or inside your home? * PCP Dr. Keller * [facility] * Preadmission Environment Home with Family * ADLs Independent * Equipment None * List name and contact numbers for known caregivers / representatives who currently or will assist patient after discharge: Rona Isabel - - [phone] * Verbal permission to speak to the caregivers and representatives has been obtained from the patient. Yes * Community resources currently utilized None * Additional services required to return to the preadmission environment? No * Can the patient safely return to the preadmission environment? Yes * Has this patient been hospitalized within the prior 30 days at any hospital? No Last DP export: 07/30/18 11:23 Patient Name: JUAN ISABEL Page 35727 at 1230 All edits/amendments must be made on the electronic document DICTATION DATE: 07/30/181228 CUSTOMER CARE REPRESENTATIVE: DIONICIO 07/30/181228 RPT#: [id number] DC DATE: STATUS: ADM IN [facility] [address] [place] [address] END OF REPORT
[~2018-07-26 13:25] MED LIST changes: +AMBIEN5 MG PO; +PLAVIX75 MG PO
[2018-07-26] MEDS ORDERED: AUGMENTIN 875-11 TAB PO (13:40)
[2018-07-26 14:15] LABS: BASOPHILS 0.4 % (0-2); EOSINOPHILS 2.3 % (0-7); HEMATOCRIT 36.5 % (42.0-54.0); IMMATURE GRANULOCYTES 0.2 % (0-5); LYMPHOCYTES 14.5 % (15-50); MCH 29.6 pg (26.0-34.0); MCHC 35.6 g/dL (31.0-37.0); MCV 83.1 fL (80.0-100.0); MEAN PLATELET VOLUME 9.7 fL (7.4-10.4); MONOCYTES 9.1 % (2-11); NEUTROPHILS 73.5 % (40-80); PLATELET COUNT 230 10x3/uL (130-400); RBC 4.39 10x6/uL (4.20-6.10); RDW 13.9 % (11.5-14.5); WBC 9.7 10x3/uL (4.8-10.8)
[2018-07-26 14:30] LABS: ALBUMIN 3.6 g/dL (3.4-5.0); ALKALINE PHOSPHATASE 56 U/L (46-116); ALT (SGPT) 78 U/L (10-68); BILIRUBIN - TOTAL 0.51 mg/dL (0.2-1.3); CALC OSMOLALITY 283 mosm/kg (275-300); CALCIUM 8.8 mg/dL (8.5-10.1); CARBON DIOXIDE 29.3 mmol/L (21.0-32.0); CHLORIDE - SERUM 102 mmol/L (98-107); CREATININE - SERUM 0.9 mg/dL (0.6-1.3); GLUCOSE 145 mg/dL (74-106); POTASSIUM - SERUM 3.3 mmol/L (3.5-5.1); PROTEIN - SERUM 7.8 g/dL (6.4-8.2); SODIUM 141 mmol/L (136-145); UREA NITROGEN 12 mg/dL (7-18); eGFR NON AFRICAN AMERICAN > 90 mL/min (90-120)
[2018-07-26 22:56] VITALS: BP 157/94
[2018-07-27] VITALS (7 sets, daily range): BP systolic 134–163; BP diastolic 76–101; Ht 175.3 cm; Wt 99.1 kg
[2018-07-27 05:48] LABS: BASOPHILS 0.3 % (0-2); EOSINOPHILS 3.4 % (0-7); HEMATOCRIT 33.7 % (42.0-54.0); HEMOGLOBIN 11.7 g/dL (13.5-17.5); IMMATURE GRANULOCYTES 0.1 % (0-5); LYMPHOCYTES 16.4 % (15-50); MCH 29.2 pg (26.0-34.0); MCHC 34.7 g/dL (31.0-37.0); MEAN PLATELET VOLUME 9.5 fL (7.4-10.4); MONOCYTES 9.2 % (2-11); NEUTROPHILS 70.6 % (40-80); PLATELET COUNT 207 10x3/uL (130-400); RBC 4.01 10x6/uL (4.20-6.10)
[2018-07-27 05:59] LABS: CALC OSMOLALITY 278 mosm/kg (275-300); CARBON DIOXIDE 29.2 mmol/L (21.0-32.0); CHLORIDE - SERUM 103 mmol/L (98-107); CREATININE - SERUM 0.8 mg/dL (0.6-1.3); GLUCOSE 145 mg/dL (74-106); POTASSIUM - SERUM 3.4 mmol/L (3.5-5.1); SODIUM 139 mmol/L (136-145); eGFR NON AFRICAN AMERICAN > 90 mL/min (90-120)
[2018-07-27 06:02] LABS: UREA NITROGEN 7 mg/dL (7-18)
[2018-07-27 06:12] LABS: WBC 7.1 10x3/uL (4.8-10.8)
[2018-07-27 10:46] LABS: % SATURATION 10 % (15-55); IRON 24 ug/dl (35-150); TOTAL IRON BIND CAPACITY 223 ug/dl (260-445); UNSAT IRON BIND CAPACITY 199 ug/dl (150-375)
[2018-07-27 18:49] LABS: APPEARANCE CLEAR (CLEAR); COLOR YELLOW (YELLOW); NITRITE NEGATIVE (NEGATIVE); SPECIFIC GRAVITY 1.015 (1.005-1.020)
[2018-07-27 18:50] LABS: BILIRUBIN NEGATIVE (NEGATIVE); GLUCOSE NEGATIVE (NEGATIVE); KETONE NEGATIVE (NEGATIVE); PROTEIN NEGATIVE (NEGATIVE); UROBILINOGEN NORMAL (NORMAL)
[2018-07-28 00:07] VITALS: BP 143/83
[2018-07-28 05:29] VITALS: BP 147/85
[2018-07-28 06:47] LABS: BASOPHILS 0.3 % (0-2); EOSINOPHILS 2.3 % (0-7); HEMATOCRIT 33.7 % (42.0-54.0); HEMOGLOBIN 11.7 g/dL (13.5-17.5); IMMATURE GRANULOCYTES 0.4 % (0-5); LYMPHOCYTES 14.7 % (15-50); MCH 29.4 pg (26.0-34.0); MCHC 34.7 g/dL (31.0-37.0); MCV 84.7 fL (80.0-100.0); MEAN PLATELET VOLUME 9.4 fL (7.4-10.4); MONOCYTES 13.9 % (2-11); NEUTROPHILS 68.4 % (40-80); PLATELET COUNT 196 10x3/uL (130-400); RBC 3.98 10x6/uL (4.20-6.10); RDW 14.1 % (11.5-14.5); WBC 7.7 10x3/uL (4.8-10.8)
[2018-07-28 07:04] LABS: CALC OSMOLALITY 277 mosm/kg (275-300); CALCIUM 8.3 mg/dL (8.5-10.1); CHLORIDE - SERUM 103 mmol/L (98-107); CREATININE - SERUM 0.8 mg/dL (0.6-1.3); GLUCOSE 119 mg/dL (74-106); POTASSIUM - SERUM 3.7 mmol/L (3.5-5.1); SODIUM 139 mmol/L (136-145); eGFR NON AFRICAN AMERICAN > 90 mL/min (90-120)
[2018-07-28 07:07] LABS: UREA NITROGEN 10 mg/dL (7-18)
[2018-07-28 07:18] VITALS: BP 130/85
[2018-07-28 07:22] LABS: FOLATE (FOLIC ACID) - SERUM 19.9 ng/mL (>3.0)
[2018-07-28 11:14] VITALS: BP 119/72
[2018-07-28 20:09] VITALS: BP 130/85
[2018-07-29 00:03] VITALS: BP 128/77
[2018-07-29 04:45] VITALS: BP 141/77
[2018-07-29 05:07] LABS: BASOPHILS 0.4 % (0-2); EOSINOPHILS 2.9 % (0-7); HEMATOCRIT 32.7 % (42.0-54.0); HEMOGLOBIN 11.3 g/dL (13.5-17.5); IMMATURE GRANULOCYTES 0.1 % (0-5); LYMPHOCYTES 17.3 % (15-50); MCH 29.3 pg (26.0-34.0); MCHC 34.6 g/dL (31.0-37.0); MCV 84.7 fL (80.0-100.0); MEAN PLATELET VOLUME 9.8 fL (7.4-10.4); MONOCYTES 12.3 % (2-11); PLATELET COUNT 209 10x3/uL (130-400); RBC 3.86 10x6/uL (4.20-6.10); RDW 14.2 % (11.5-14.5); WBC 7.3 10x3/uL (4.8-10.8)
[2018-07-29 05:31] LABS: CALC OSMOLALITY 278 mosm/kg (275-300); CALCIUM 8.5 mg/dL (8.5-10.1); CHLORIDE - SERUM 103 mmol/L (98-107); CREATININE - SERUM 0.9 mg/dL (0.6-1.3); GLUCOSE 131 mg/dL (74-106); POTASSIUM - SERUM 3.5 mmol/L (3.5-5.1); SODIUM 139 mmol/L (136-145); UREA NITROGEN 10 mg/dL (7-18); eGFR NON AFRICAN AMERICAN > 90 mL/min (90-120)
[2018-07-29 07:05] VITALS: BP 126/79
[2018-07-29 11:11] VITALS: BP 122/74
[2018-07-29 15:31] VITALS: BP 129/86
[2018-07-29 20:00] VITALS: BP 128/87
[2018-07-30 00:16] VITALS: BP 148/84
[2018-07-30 04:30] VITALS: BP 126/79
[2018-07-30 05:25] LABS: BASOPHILS 0.3 % (0-2); EOSINOPHILS 3.2 % (0-7); HEMATOCRIT 33.1 % (42.0-54.0); HEMOGLOBIN 11.4 g/dL (13.5-17.5); IMMATURE GRANULOCYTES 0.4 % (0-5); MCH 29.4 pg (26.0-34.0); MCHC 34.4 g/dL (31.0-37.0); MCV 85.3 fL (80.0-100.0); MEAN PLATELET VOLUME 9.3 fL (7.4-10.4); MONOCYTES 11.9 % (2-11); NEUTROPHILS 63.2 % (40-80); PLATELET COUNT 196 10x3/uL (130-400); RBC 3.88 10x6/uL (4.20-6.10); RDW 14.3 % (11.5-14.5)
[2018-07-30 05:49] LABS: CALC OSMOLALITY 282 mosm/kg (275-300); CALCIUM 8.3 mg/dL (8.5-10.1); CARBON DIOXIDE 30.7 mmol/L (21.0-32.0); CHLORIDE - SERUM 105 mmol/L (98-107); CREATININE - SERUM 0.8 mg/dL (0.6-1.3); GLUCOSE 111 mg/dL (74-106); POTASSIUM - SERUM 3.9 mmol/L (3.5-5.1); SODIUM 142 mmol/L (136-145); UREA NITROGEN 11 mg/dL (7-18); eGFR NON AFRICAN AMERICAN > 90 mL/min (90-120)
[2018-07-30 07:45] VITALS: BP 130/94
[2018-07-30 11:12] VITALS: BP 134/80
[2018-07-30 17:59] VITALS: BP 144/78
[2018-07-30 19:40] VITALS: BP 148/81
[2018-07-31 00:54] VITALS: BP 140/83
[2018-07-31 04:55] VITALS: BP 131/90
[2018-07-31 06:03] LABS: BASOPHILS 0.3 % (0-2); EOSINOPHILS 3.1 % (0-7); HEMATOCRIT 32.4 % (42.0-54.0); HEMOGLOBIN 11.2 g/dL (13.5-17.5); IMMATURE GRANULOCYTES 0.3 % (0-5); LYMPHOCYTES 18.5 % (15-50); MCH 29.3 pg (26.0-34.0); MCHC 34.6 g/dL (31.0-37.0); MCV 84.8 fL (80.0-100.0); MEAN PLATELET VOLUME 9.2 fL (7.4-10.4); MONOCYTES 8.9 % (2-11); NEUTROPHILS 68.9 % (40-80); PLATELET COUNT 204 10x3/uL (130-400); RBC 3.82 10x6/uL (4.20-6.10); WBC 6.8 10x3/uL (4.8-10.8)
[2018-07-31 06:14] LABS: CALC OSMOLALITY 277 mosm/kg (275-300); CALCIUM 8.5 mg/dL (8.5-10.1); CARBON DIOXIDE 30.7 mmol/L (21.0-32.0); CHLORIDE - SERUM 101 mmol/L (98-107); CREATININE - SERUM 0.8 mg/dL (0.6-1.3); GLUCOSE 119 mg/dL (74-106); POTASSIUM - SERUM 3.6 mmol/L (3.5-5.1); SODIUM 139 mmol/L (136-145); UREA NITROGEN 11 mg/dL (7-18); eGFR NON AFRICAN AMERICAN > 90 mL/min (90-120)
[2018-07-31 07:40] VITALS: BP 139/87
[2018-07-31 11:07] VITALS: BP 144/84
[2018-07-31 15:24] VITALS: BP 143/88
[2018-07-31 19:15] VITALS: BP 130/88
[2018-08-01] VITALS: BP 132/88
[2018-08-01 04:50] VITALS: BP 135/90
[2018-08-01 06:14] LABS: BASOPHILS 0.5 % (0-2); HEMATOCRIT 33.5 % (42.0-54.0); HEMOGLOBIN 11.5 g/dL (13.5-17.5); IMMATURE GRANULOCYTES 0.3 % (0-5); LYMPHOCYTES 18.6 % (15-50); MCH 29.2 pg (26.0-34.0); MCHC 34.3 g/dL (31.0-37.0); MEAN PLATELET VOLUME 9.4 fL (7.4-10.4); MONOCYTES 11.1 % (2-11); NEUTROPHILS 66.5 % (40-80); PLATELET COUNT 228 10x3/uL (130-400); RBC 3.94 10x6/uL (4.20-6.10); RDW 13.8 % (11.5-14.5); WBC 6.3 10x3/uL (4.8-10.8)
[2018-08-01 06:29] LABS: CALC OSMOLALITY 278 mosm/kg (275-300); CALCIUM 8.6 mg/dL (8.5-10.1); CARBON DIOXIDE 28.5 mmol/L (21.0-32.0); CHLORIDE - SERUM 103 mmol/L (98-107); CREATININE - SERUM 0.8 mg/dL (0.6-1.3); GLUCOSE 115 mg/dL (74-106); POTASSIUM - SERUM 3.5 mmol/L (3.5-5.1); SODIUM 140 mmol/L (136-145); UREA NITROGEN 10 mg/dL (7-18); eGFR NON AFRICAN AMERICAN > 90 mL/min (90-120)
[2018-08-01 08:18] VITALS: BP 156/88
[2018-08-01 11:39] VITALS: BP 159/82
[2018-08-01 17:06] VITALS: BP 162/93
[2018-08-01 19:59] VITALS: BP 149/93
[2018-08-02 00:26] VITALS: BP 157/92
[2018-08-02 04:25] VITALS: BP 147/81
[2018-08-02 07:30] VITALS: BP 140/89
[2018-08-02 11:08] VITALS: BP 122/86
[2018-08-02 13:41] LABS: BASOPHILS 0.4 % (0-2); EOSINOPHILS 2.1 % (0-7); HEMATOCRIT 36.9 % (42.0-54.0); HEMOGLOBIN 12.9 g/dL (13.5-17.5); IMMATURE GRANULOCYTES 0.8 % (0-5); LYMPHOCYTES 20.2 % (15-50); MCH 29.7 pg (26.0-34.0); MEAN PLATELET VOLUME 9.7 fL (7.4-10.4); MONOCYTES 10.4 % (2-11); NEUTROPHILS 66.1 % (40-80); PLATELET COUNT 264 10x3/uL (130-400); RBC 4.34 10x6/uL (4.20-6.10); WBC 7.8 10x3/uL (4.8-10.8)
[2018-08-02 14:11] LABS: ALBUMIN 3.4 g/dL (3.4-5.0); ALKALINE PHOSPHATASE 58 U/L (46-116); ALT (SGPT) 56 U/L (10-68); BILIRUBIN - TOTAL 0.47 mg/dL (0.2-1.3); CALC OSMOLALITY 276 mosm/kg (275-300); CALCIUM 8.9 mg/dL (8.5-10.1); CARBON DIOXIDE 27.9 mmol/L (21.0-32.0); CHLORIDE - SERUM 100 mmol/L (98-107); CREATININE - SERUM 0.8 mg/dL (0.6-1.3); GLUCOSE 125 mg/dL (74-106); POTASSIUM - SERUM 3.5 mmol/L (3.5-5.1); PROTEIN - SERUM 7.6 g/dL (6.4-8.2); SODIUM 138 mmol/L (136-145); UREA NITROGEN 12 mg/dL (7-18); eGFR NON AFRICAN AMERICAN > 90 mL/min (90-120)
[2018-08-02] MEDS ORDERED: KEFLEX500 MG PO (14:36)
[2018-08-02] MEDS ORDERED: VIBRAMYCIN 100100 MG PO (14:36)
[2018-08-02 15:39] VITALS: BP 129/89
== END 2018-08-02 16:41 | disposition home or self-care (01) | DRG 603 ==
LOC: D.ER 13:25 → D.M3 16:54 → D.EDHOLD 16:54 → D.M3 20:33
PROVIDERS: Emergency Medicine; Family Medicine; Internal Medicine Nephrology
DX: L03.116 Cellulitis of left lower limb (principal); G91.2 (Idiopathic) normal pressure hydrocephalus; L03.115 Cellulitis of right lower limb; K21.9 Gastro-esophageal reflux disease without esophagitis; I10 Essential (primary) hypertension; E78.5 Hyperlipidemia, unspecified; I25.10 Atherosclerotic heart disease of native coronary artery without angina pectoris; Z95.5 Presence of coronary angioplasty implant and graft; L40.9 Psoriasis, unspecified; D64.9 Anemia, unspecified; M10.9 Gout, unspecified; E87.6 Hypokalemia

== ENCOUNTER 2018-12-13 10:09 | Outpatient (CLI) | payer BC ==
[~2018-12-13] VITALS: Ht 175.3 cm; Wt 102.3 kg
--- NOTE | ~2018-12-13 | HEMODYNAMI ---
PATIENT:JUAN ISABEL ROSALINDA MEDICAL RECORD: [id number] : 58 LOCATION:[facility] ADMISSION DATE: 12/13/18 Generatedon:12/13/201812:19 Patient name: JUAN ISABEL Patient #: [id number] SSN: : 1960 Date of study: 12/13/2018 Page: Of Hemodynamic Procedure Report Patient Data Patient Demographics Procedure consent was obtained First Name: JUAN Gender: Male Last Name: CHALO : 1960 Middle Initial: ROSALINDA Age: 58 year(s) Patient #: [id number] Race: Unknown Additional ID: [id number] Contact details [address]: [address] [place] [address] State: [place] City: [place] Zip code: [address] Past Medical History Allergies Allergen Reaction Date Comments Reported Other allergy 05/03/2018 CODEINE Admission Admission Data Admission Date: 12/13/2018 Admission Time: 10:09 Procedure Procedure Types Cath Procedure Diagnostic Procedure LHC LHC w/Coronaries Procedure Description Procedure Date Procedure Date: 12/13/2018 Procedure Start Time: 12:09 Procedure End Time: 12:15 Procedure Staff Name Function Edgar Clemente MD Performing Physician Jose M Montejo RT Monitor Lizzie Rowe RT Scrub Mary Serrano RN Nurse Procedure Data Cath Procedure Fluoroscopy Diagnostic fluoroscopy Total fluoroscopy Time: 1 time: 1 min min Diagnostic fluoroscopy Total fluoroscopy dose: 493 dose: 493 mGy mGy Contrast Material Contrast Material Type Amount (ml) Isovue 300 57 Entry Location Entry Primary Successful Side Size Upsize Upsize Entry Closure Balderrama ccessful Closure Location (Fr) 1 (Fr) 2 (Fr) Remarks Device Remarks Radial Right 6 Fr Mechanical artery Short Compression Estimated blood loss: 5 ml Diagnostic catheters Device Type Used For End Catheter Placement DIAGNOSTIC [place] 110cm 5 Multi-vessel Fr catheter ([id number]) Angiography Procedure Complications No complications Procedure Medications Medication Administration Route Dosage 0.9% NaCl I.V. 100 ml/hr Oxygen etCO2 Nasal cannula 2 l/min Lidocaine 2% added to field 20 Heparin Flush Bag added to field 2 bags (1000units/500ml NS) Radial Cocktail added to field 1 syringe (Verapomil 2mg/Nitro 400mcg/Heparin 1500units) Versed I.V. 2 mg Fentanyl I.V. 50 mcg Versed I.V. 2 mg Fentanyl I.V. 50 mcg Hemodynamics Rest Heart Rate: 78 (bpm) Pressure Samples Time Site Value (mmHg) Purpose Heart Use Rate(bpm) 12:11 LV 114/26,22 Snapshot 95 Snapshots Pre Cath Intra NCS Post Cath Vital Signs Time Heart Resp SPO2 etCO2 NIBP (mmHg) Rhythm Pain Sedation Rate (ipm) (%) (mmHg) Status Level (bpm) 11:53:14 76 13 99 38.4 144/100(116) NSR 0 (11) 10(A) , No pain 11:57:24 77 10 100 36.2 140/98(125) NSR 0 (11) 10(A) , No pain 12:01:34 77 14 98 42.9 136/95(115) NSR 0 (11) 10(A) , No pain 12:05:46 76 15 97 40.7 123/97(122) NSR 0 (11) 10(A) , No pain 12:09:54 78 17 97 40 117/93(114) NSR 0 (11) 10(A) , No pain 12:13:55 86 17 97 42.2 116/90(110) NSR 0 (11) 9(A) , No pain Medications Time Medication Route Dose Verified Delivered Reason Notes E ffectiveness by by 11:52:20 0.9% NaCl I.V. 100 Edgar Mary used for ml/hr Chyna Serrano donor center technician 11:52:27 Oxygen etCO2 2 l/min Edgar Mary used for Nasal Chyna Serrano procedure cannula RN 11:52:32 Lidocaine 2% added 20ml Edgar Hernández for local to vial Chyna Clemente MD anesthetic field 11:52:36 Heparin Flush added 2 bags Edgar Hernández used for Bag to Chyna Clemente MD procedure (1000units/500ml field NS) 11:52:43 Radial Cocktail added 1 Edgar Hernández used for (Verapomil to syringe Chyna Clemente MD procedure 2mg/Nitro field 400mcg/Heparin 1500units) 12:06:59 Versed I.V. 2 mg Edgar Mullinsa for Chyna Serrano sedation RN 12:07:04 Fentanyl I.V. 50 mcg Edgar Hernandez for Chyna Serrano sedation RN 12:12:24 Fentanyl I.V. 50 mcg Edgar Hernandez for Chyna Serrano sedation RN 12:12:24 Versed I.V. 2 mg Edgar Hernandez for Chyna Serrano sedation motor vehicle compliance analyst Log Time Note 11:46:13 Diagnostic Cath Status : Elective 11:46:42 Mary Serrano RN sent for patient. Start room use. 11:46:43 Time tracking: Regular hours (M-F 7:00 - 5:00) 11:46:47 Plan of Care:Hemodynamics will remain stable., Cardiac rhythm will remain stable., Comfort level will be maintained., Respiratory function will remain adequate., Patient/ family verbilizes understanding of procedure., Procedure tolerated without complication., Recovers from procedure without complications.. 11:52:12 Vital chart was started 11:52:20 0.9% NaCl 100 ml/hr I.V. was administered by Mary Serrano RN; used for procedure; 11:52:27 Oxygen 2 l/min etCO2 Nasal cannula was administered by Mary Serrano RN; used for procedure; 11:52:32 Lidocaine 2% 20ml vial added to field was administered by Edgar Clemente MD; for local anesthetic; 11:52:36 Heparin Flush Bag (1000units/500ml NS) 2 bags added to field was administered by Edgar Clemente MD; used for procedure; 11:52:43 Radial Cocktail (Verapomil 2mg/Nitro 400mcg/Heparin 1500units) 1 syringe added to field was administered by Edgar Clemente MD; used for procedure; 11:57:13 Patient received from Pre/Post Procedure Room to CCL 1 Alert and oriented. Tansferred to table in Supine position. 11:57:14 Warm blankets applied, and ruben hugger turned on for patient comfort. 11:57:15 Correct patient and procedure confirmed by team. 11:57:15 Correct patient and procedure confirmed by team. 11:57:16 Signed procedure consent form obtained from patient. 11:57:18 Baseline sample Acquired. :57:18 ECG and BP/O2 sat monitors applied to patient. 11:57:21 Rhythm: sinus rhythm 11:57:23 Full Disclosure recording started 11:57:29 H&P Date Dictated: 12/13/2018 Within 30 days and on chart., H&P Addendum completed by physician on day of procedure. (MUST COMPLETE FOR ALL OUTPATIENTS). 11:57:32 Pre-procedure instructions explained to patient. 11:57:32 Pre-op teaching completed and patient verbalized understanding. 11:57:34 Family in waiting room. 11:57:36 Patient NPO since Midnight. 11:57:38 Is the patient allergic to Iodine/contrast media? No. 11:57:39 Was the patient premedicated? No 11:57:40 Is patient on blood thinner?Yes 11:57:42 ACC The patient was administered the following blood thiners within the last 24 hours: ACCPlavix 11:57:46 Patient diabetic? No. 11:57:51 Previous problem with sedation/anesthesia? No ? 11:57:55 Snore? No 11:57:56 Sleep apnea? No 11:57:57 Deviated septum? No 11:57:58 Opens mouth fully? Yes 11:57:59 Sticks out tongue? Yes 11:58:01 Airway obstruction? No ? 11:58:05 Dentures? No ? 11:58:09 Pre procedure: right dorsailis pedis pulse 2+ Normal; easily identifiable; not easily obliterated 11:58:11 Pre procedure: left dorsailis pedis pulse 2+ Normal; easily identifiable; not easily obliterated 11:58:13 Patient pain scale 0/10 ?. 11:58:23 IV patent on arrival in left antecubital with 0.9% NaCl at O. 11:58:26 Lab results completed and on chart. 11:58:30 Right Radial & Right Groin area was prepped with chlora-prep and draped in sterile fashion 11:58:31 Alarms reviewed by R. N. 11:58:31 Sharps counted by scrub and verified by R.N. 12:04:28 Zero performed for pressure channel P1 12:05:27 Physician arrived 12:05:28 --------ALL STOP TIME OUT------ 12::28 Final Timeout: patient, procedure, and site verified with staff and physician. All members of the team are in agreement. 12:05:30 Right Radial & Right Groin site verified by team. 12:05:36 Maximum allowable Isovue 300 dose 300ml. Physician notified. (300ml for normal creatinines. For patients with creatinine of 1.7 or higher multiply weight(kg) x 5 divided by creatinine.) 12:05:41 Fire Safety Assessment: A--An alcohol-based skin anteseptic being used preoperatively., C--Open oxygen or nitrous oxide is being used., D--An ESU, laser, or fiber-optic light is being used. 12:05:45 Physical assessment completed. ASA score P 2 - A patient with mild systemic disease as per Edgar Clemente MD. 12:05:49 Sedation plan: IV Moderate Sedation Medication:Versed, Fentanyl 12:05:53 Use device set Radial Dx or PCI 12:05:54 ACIST Syringe (99084) opened to sterile field. 12:05:55 Medline Cath Pack ([id number]) opened to sterile field. 12:05:55 Bag Decanter (2002S) opened to sterile field. 12:05:56 DIAGNOSTIC WIRE .035 260cm J wire (971580) opened to sterile field. 12:05:56 ACIST Hand Control (93719) opened to sterile field. 12:05:57 ACIST Manifold (03111) opened to sterile field. 12:05:57 Tegaderm 4 x 4 (1626W) opened to sterile field. 12:05:58 SHEATH 6FR Slender (43-4130) opened to sterile field. 12:05:59 MBrace Wrist Support ([id number]) opened to sterile field. 12:06:59 Versed 2 mg I.V. was administered by Mary Serrano RN; for sedation; 12:07:04 Fentanyl 50 mcg I.V. was administered by Mary Serrano RN; for sedation; 12:07:22 Procedure started. 12:09:03 Local anesthetic to right radial artery with Lidocaine 2% by Edgar Clemente MD.INITIAL ACCESS ONLY 12:09:53 A 6 Fr Short sheath was inserted into the Right Radial artery 12:10:00 A DIAGNOSTIC [place] 110cm 5 Fr catheter ([id number]) was advanced over the wire and used for Multi-vessel Angiography. 12:11:33 LV hemodynamics recorded. 12:11:35 LV gram done using CHOE 12:11:37 Injector settings: Ml/sec: 5, Volume: 15, 12:11:53 EF : 60 % 12:12:05 LCA angiography performed. 12:12:10 Injector settings: Ml/sec: 3, Volume: 6, 12:12:24 Versed 2 mg I.V. was administered by Mary Serrano RN; for sedation; 12:12:24 Fentanyl 50 mcg I.V. was administered by Mary Serrano RN; for sedation; 12:13:14 RCA angiography performed. 12:13:18 Injector settings: Ml/sec: 3, Volume: 6, 12:13:20 TR BAND Standard ([id number]) opened to sterile field. 12:13:55 Catheter removed. 12:14:03 Sheath removed intact; hemostasis achieved with Mechanical Compression to the Right Radial artery. 12:14:05 Procedure ended.(Physican Out) 12:14:22 Fluoroscopy time 01.00 minutes. 12:14:26 Fluoroscopy dose: 493 mGy 12:14:26 Flurop Dose total: 493 12:14:29 Contrast amount:Isovue 300 57ml. 12:14:31 Sharps counted by scrub and verified by R.N. 12:14:33 Insertion/operative site no bleeding no hematoma. 12:14:41 Post right radial artery:stable 12:14:43 Post Procedure Pulses reassessed and unchanged 12:15:01 Post procedure rhythm: unchanged. 12:15:04 Estimated blood loss: 5 ml 12:15:05 Post procedure instruction explained to patient.Patient verbalizes understanding. 12:15:06 Patient needs reinforcement of post procedure teaching. 12:15:20 Procedure and supply charges have been captured, reviewed, submitted and are correct. 12:15:26 Procedure Complication : No complications 12:15:29 Vital chart was stopped 12:15:30 See physician's report for complete and final results. 12:15:37 Report given to Pre/Post Procedure Room. 12:15:39 Patient transfered to Pre/Post Procedure Room with Stretcher. 12:15:41 Procedure ended. 12:15:41 Full Disclosure recording stopped 12:15:45 End room use (Document Last) Device Usage Item Name Manufacture Quantity Catalog Hospital Part Current Minimal Lot# / Number Charge Number Stock Stock Serial# Code ACIST Acist 1 34452 [id number] 163736 097945 20 Syringe Medical (25971) Systems Inc Medline Medline 1 [id number] 78972 888322 5 Cath Pack ([id number]) Bag Microtek 1 2001S 343358 31287 330967 5 Decanter Medical Inc. () DIAGNOSTIC [facility] Brian 1 218022 407244 021414 850435 30 WIRE .035 260cm J wire (083976) ACIST Hand Acist 1 70339 905463 297874 112724 5 Control Medical (26536) Systems Inc ACIST Acist 1 57356 459217 111169 984837 5 Manifold Medical (98513) Systems Inc Tegaderm 4 3M 1 1626W 369033 233275 884531 5 x 4 (1626W) SHEATH 6FR Terumo 1 [id number] 886126 797577 416779 5 Slender (80-1060) MBrace Advanced 1 140-0250-00 303022 66305 053115 5 Wrist Vascular Support Dynamics (160095216) DIAGNOSTIC Terumo 1 63-2526 665930 864098 768048 5 [place] 110cm 5 Fr catheter (110084) TR BAND Terumo 1 [id number] 448661 680989 552200 40 Standard ([id number]) Signature Audit [place] [employer] Time Signature Unsigned Intra-Procedure 12/13/2018 Lizzie Jae 12:19:32 PM RT(R) Signatures Monitor : Jose M Montejo RT Signature : Date : Time : [facility] [address] [place] [address]
[~2018-12-13 10:09] MED LIST changes: +AUGMENTIN 875-11 TAB PO; +KEFLEX500 MG PO; +VIBRAMYCIN 100100 MG PO
[2018-12-13] MEDS ORDERED: COLCRYS0.6 MG PO (10:32)
[2018-12-13] MEDS ORDERED: PRAVACHOL20 MG PO (10:35)
[2018-12-13] MEDS ORDERED: ATARAX 25 MG TA25 MG PO (10:35)
[2018-12-13] MEDS ORDERED: NORVASC10 MG PO (10:35)
[2018-12-13] MEDS ORDERED: VENTOLIN INH (10:36)
[2018-12-13 10:42] VITALS: BP 163/101; Ht 175.3 cm; Wt 102.3 kg
[2018-12-13 11:02] LABS: BASOPHILS 0.5 % (0-2); EOSINOPHILS 2.9 % (0-7); HEMOGLOBIN 13.4 g/dL (13.5-17.5); IMMATURE GRANULOCYTES 0.2 % (0-5); MCH 30.1 pg (26.0-34.0); MCHC 36.2 g/dL (31.0-37.0); MCV 83.1 fL (80.0-100.0); MEAN PLATELET VOLUME 9.8 fL (7.4-10.4); MONOCYTES 7.9 % (2-11); NEUTROPHILS 58.5 % (40-80); RBC 4.45 10x6/uL (4.20-6.10); RDW 13.6 % (11.5-14.5); WBC 5.5 10x3/uL (4.8-10.8)
[2018-12-13 11:03] LABS: PLATELET COUNT 196 10x3/uL (130-400)
[2018-12-13 11:12] LABS: CALC OSMOLALITY 280 mosm/kg (275-300); CALCIUM 8.7 mg/dL (8.5-10.1); CARBON DIOXIDE 27.4 mmol/L (21.0-32.0); CHLORIDE - SERUM 104 mmol/L (98-107); CREATININE - SERUM 0.9 mg/dL (0.6-1.3); GLUCOSE 120 mg/dL (74-106); POTASSIUM - SERUM 3.3 mmol/L (3.5-5.1); SODIUM 140 mmol/L (136-145); UREA NITROGEN 14 mg/dL (7-18); eGFR NON AFRICAN AMERICAN > 90 mL/min (90-120)
--- NOTE | 2018-12-13 12:27 | NUR ---
PT ARRIVED BY STRETCHER. ASSESSMENT COMLETED. VSS. RIGHT WRIST TR BAND IN PLACE. NO BLEEDING/HEMATOMA. FAMILY AT BEDSIDE. HEAD OF BED INC TO 30 DEGREES.
--- NOTE | 2018-12-13 12:45 | NUR ---
PT SITTING UP AND EATING SANDWICH. RIGHT WRIST TR BAND IN PLACE. NO BLEEDING/HEMATOMA NOTED. VSS.
--- NOTE | 2018-12-13 13:15 | NUR ---
3cc OF AIR REMOVED FROM TR BAND. PT TOLERATED WELL. NO BLEEDING/HEMATOMA NOTED. VSS.
--- NOTE | 2018-12-13 13:30 | NUR ---
3cc OF AIR REMOVED FROM TR BAND. NO BLEEDING/HEMATOMA NOTED. VSS. FAMILY AT BEDSIDE. PT RESTING COMFORTABLY.
--- NOTE | 2018-12-13 13:52 | NUR ---
3cc OF AIR REMOVED FROM TR BAND. NO BLEEDING/HEMATOMA NOTED. LEFT AC PIV D/C'D WITH CATH TIP INTACT. PT TOLERATED WELL. VSS. PT INSTRUCTED TO GET UP AND DRESSED. FAMILY AT BEDSIDE TO ASSIST.
--- NOTE | 2018-12-13 14:08 | NUR ---
TR BAND REMOVED. DRESSING APPLIED. NO BLEEDING/HEMATOMA NOTED. TOLERATED WELL. RIGHT WRIST BRACE APPLIED AND PT INSTRUCTED TO KEEP ON FOR 2 HOURS ONCE HE WAS HOME. DISCUSSED DISCHARGE INSTRUCTIONS WITH PT AND PT'S FAMILY. THEY VOICED UNDERSTANDING. NO OTHER NEEDS AT THIS TIME.
--- NOTE | 2018-12-13 14:15 | NUR ---
PT TAKEN TO VEHICLE BY WHEELCHAIR. NO S/S OF DISTRESS NOTED. ALL BELONGINGS AND PAPERWORK IN HAND.
--- NOTE | 2018-12-14 15:03 | OP ---
PATIENT NAME: JUAN ISABEL MEDICAL RECORD: [id number] :58 LOCATION:D.CAT ADMISSION DATE: SURGEON: COTY ALVES MD DATE OF OPERATION: 12/13/2018 DATE OF SERVICE: 12/13/2018 PROCEDURES: 1. Left heart catheterization. 2. Selective coronary angiography. 3. Left ventriculogram. INDICATION: Angina and coronary artery disease. DESCRIPTION OF PROCEDURE: After informed consent was obtained and after a detailed description of risks, benefits as well as alternative therapies, the patient elected to proceed with angiogram and heart catheterization. The right radial area was prepped and draped in normal sterile fashion. Right radial artery was cannulated via modified Seldinger technique with placement of 6-Ivorian sheath. All catheters exchanged through this sheath. FINDINGS: The left ventriculogram was performed in standard 30-degree CHOE view, reveals good cardiac wall motion throughout all segments. Overall ejection fraction estimated at 60%. SELECTIVE CORONARY ANGIOGRAPHY: 1. Left main is with no significant angiographic disease. 2. Left anterior descending has previously placed stent that is widely patent with no significant restenosis. No significant disease elsewise at the LAD or its branches. 3. Left circumflex has moderate irregularities, but no flow-limiting stenosis. 4. Right coronary has moderate irregularities, but no flow-limiting stenosis. OVERALL IMPRESSION: Wide patency of the previously placed stent. No significant disease elsewise, preserved left ventricular function. Continue medical management of the coronary artery disease and cardiac risk factors. TRANSINT:[id number] Voice Confirmation ID: [id number] DOCUMENT ID: [id number] COTY ALVES MD at 1503 CC: [id number] DICTATION DATE: 12/13/18 1217 DROSOPHERE OPERATOR: 12/13/18 1238 DEP CLI 12/13/18 [place] [address]
== END 2018-12-13 14:10 | disposition home or self-care (01) ==
LOC: D.CATH 10:09
PROVIDERS: ATTEND Internal Medicine Interventional Cardiology
DX: I25.119 Atherosclerotic heart disease of native coronary artery with unspecified angina pectoris (principal); Z95.5 Presence of coronary angioplasty implant and graft; Z01.812 Encounter for preprocedural laboratory examination

== ENCOUNTER → 2019-01-25 11:16 | Outpatient (CLI) | payer BC ==
[2018-12-13 10:42] VITALS: BMI 33.3
[~2019-01-25 11:16] MED LIST changes: +ATARAX 25 MG TA25 MG PO; +NORVASC10 MG PO; +PRAVACHOL20 MG PO; +VENTOLIN INH
== END | disposition home or self-care (01) ==
LOC: D.MRI 11:16
PROVIDERS: ATTEND Family Medicine
DX: G83.11 Monoplegia of lower limb affecting right dominant side (principal); G83.14 Monoplegia of lower limb affecting left nondominant side

== ENCOUNTER → 2019-02-26 12:29 | Outpatient (CLI) | payer MEDICAID ==
[2018-12-13 10:42] VITALS: BMI 33.3
== END | disposition home or self-care (01) ==
LOC: D.US 12:29
PROVIDERS: ATTEND Physical Therapist Orthopedic
DX: M79.605 Pain in left leg (principal); M79.604 Pain in right leg

== ENCOUNTER → 2019-05-16 11:07 | Outpatient (CLI) | payer MEDICAID ==
[2018-12-13 10:42] VITALS: BMI 33.3
== END | disposition home or self-care (01) ==
LOC: D.MRI 11:00
PROVIDERS: ATTEND Neurological Surgery
DX: M54.12 Radiculopathy, cervical region (principal)

== ENCOUNTER 2019-08-02 05:22 | Day surgery (SDC) | payer MEDICAID ==
[2019-08-01 14:01] LABS: HEMATOCRIT 39.7 % (42.0-54.0); HEMOGLOBIN 14.3 g/dL (13.5-17.5); MCH 30.1 pg (26.0-34.0); MCV 83.6 fL (80.0-100.0); MEAN PLATELET VOLUME 9.7 fL (7.4-10.4); RBC 4.75 10x6/uL (4.20-6.10); WBC 7.8 10x3/uL (4.8-10.8)
[~2019-08-02] VITALS: Ht 175.3 cm; Wt 101.8 kg
[2019-08-02] VITALS (12 sets, daily range): BP systolic 126–159; BP diastolic 76–105; Ht 175.3 cm; Wt 101.8 kg
--- NOTE | 2019-08-02 10:08 | NUR ---
PT AWAKENING, OPA OUT. SPO2 100% ON 10 LPM VIA SM
--- NOTE | 2019-08-02 12:07 | NUR ---
PT LYING IN BED FAMILY AT BEDSIDE, PT HAS HAD A CUP OF WATER NO OTHER NEEDS VOICED CONTINUE WITH PLAN OF CARE
[2019-08-03 04:37] VITALS: BP 178/105
--- NOTE | 2019-08-03 05:00 | NUR ---
RIGHT SHOULDER BLEEDING FROM INCISION. SOAKED DRESSINGS AND PRUDENCIO WRAP. TOOK DOWN ALL DRESSINGS AND APPLIED NEW 4X4'S, ABD PADS, BORDERED GAUZE AND PRUDENCIO WRAP. DRUG ABUSE TECHNICIAN GIVING BATH NOW AND CHANGING LINENS. NO OTHER NEEDS. WILL CONTINUE TO MONITOR.
[2019-08-03 08:22] VITALS: BP 144/71
[2019-08-03] MEDS ORDERED: ULTRAM50 MG PO (12:02)
--- NOTE | 2019-08-03 12:30 | NUR ---
PT LYING IN BED PT PAIN PUMP EMPTY ADVISED HE HAS PRN PAIN MEDICATION WE CAN DO UNTIL DC/ PT INQUIRED ON PRESCRIPTIONS FOR DC ADVISED DR SHOULD BE IN TO PRESCRIBE NO OTHER NEEDS VOICED, CONTINUE WITH PLAN OF CARE
[2019-08-03 12:57] VITALS: BP 162/97
--- NOTE | 2019-08-23 09:47 | OP ---
PATIENT NAME: JUAN ISABEL MEDICAL RECORD: [id number] :58 LOCATION:[facility] ADMISSION DATE: SURGEON: LESLI COLBERT MD DATE OF OPERATION: 08/02/2019 DATE OF SERVICE: 08/02/2019 PREOPERATIVE DIAGNOSES: Disc herniation, osteophyte formation with spinal cord compression at C4-C5. POSTOPERATIVE DIAGNOSES: Disc herniation, osteophyte formation with spinal cord compression at C4-C5. PROCEDURE: Anterior cervical discectomy and fusion with PEEK interbody cage with stem cells, separate anterior cervical plate and screws from [facility]. SURGEON: Lesli Colbert MD DESCRIPTION AND TECHNIQUE: After induction of general endotracheal anesthesia, the patient was positioned supine on the operating table. Neck was prepped and draped in the usual sterile fashion. Fluoroscopic x-ray and freer localized the C4-C5 interspace. After infiltration of 1:100,000 epinephrine with 1% lidocaine, a transverse skin incision was carried out from the midline and to the sternocleidomastoid muscle. The platysma was incised with 15-blade. Using blunt and sharp dissection with Metzenbaum scissors, I proceeded in an avascular plane medial to the carotid sheath. Following this, the C4-C5 interspace was identified with fluoroscopic x-ray and a spinal needle. Next, the longus colli muscles were elevated from bodies of C4 and C5 and a self-retaining retractor was placed deep to the longus colli muscles. [place] distracting pins were placed by the C4 and C5. The disc space was incised with #11 blade. Disc material was removed with pituitary rongeurs and curettes. The endplates were prepared with curettes. Posteriorly, osteophytes were removed with a Midas-Moses drill under microscopic illumination. The posterior longitudinal ligament was removed with Cloward rongeurs. Following this, a PEEK interbody cage was placed in the disc space under distraction. Next, a [facility] anterior cervical plate and screws was used to span the C4-C5 interspace. Locking cams were tightened over the screw heads. Good position of hardware was confirmed with fluoroscopic x-ray. Meticulous hemostasis was maintained throughout the wound. The wound was irrigated with copious amounts of Ancef irrigant solution. The platysma and subdermal layer closed with interrupted 4-0 Vicryl suture. The skin was reapproximated with Steri-Strips and benzoin. A sterile dressing was applied to the wound. The patient was awakened in good condition and taken to recovery. All counts were reported as correct. Estimated blood loss was minimal. TRANSINT:[id number] Voice Confirmation ID: [id number] DOCUMENT ID: [id number] OPERATIVE REPORT [id number] JUAN ISABEL JOHN MD at 0947 CC: [id number] DICTATION DATE: 08/07/19 1613 HUMAN RESOURCES ADMINISTRATOR: 08/07/19 1629 [facility] [place] 08/03/19 [id number] [place] [address]
== END 2019-08-03 14:45 | disposition home or self-care (01) ==
LOC: D.MS 05:22 → D.OPS 05:22 → D.PAN 09:00 → D.OPS 10:00 → D.MS 10:10 → D.OPS 08-03 14:45
PROVIDERS: Anesthesiology; ATTEND Neurological Surgery
DX: M50.021 Cervical disc disorder at C4-C5 level with myelopathy (principal)

== ENCOUNTER 2019-12-25 13:14 | Inpatient (IN) | payer MEDICARE ==
[~2019-12-25] VITALS: Ht 175.3 cm; Wt 116.6 kg
[~2019-12-25 13:14] MED LIST changes: +ULTRAM50 MG PO
[2020-01-08] MEDS ORDERED: COZAAR100 MG PO (09:45)
[2020-01-08 10:39] LABS: HEMATOCRIT 38.7 % (42.0-54.0); HEMOGLOBIN 13.8 g/dL (13.5-17.5); MCH 30.1 pg (26.0-34.0); MCHC 35.7 g/dL (31.0-37.0); MCV 84.3 fL (80.0-100.0); MEAN PLATELET VOLUME 9.1 fL (7.4-10.4); RBC 4.59 10x6/uL (4.20-6.10); RDW 14.1 % (11.5-14.5); WBC 8.1 10x3/uL (4.8-10.8)
[2020-01-08 10:44] LABS: CALC OSMOLALITY 280 mosm/kg (275-300); CALCIUM 9.1 mg/dL (8.5-10.1); CARBON DIOXIDE 28.9 mmol/L (21.0-32.0); CHLORIDE - SERUM 103 mmol/L (98-107); CREATININE - SERUM 0.8 mg/dL (0.6-1.3); GLUCOSE 108 mg/dL (74-106); POTASSIUM - SERUM 3.4 mmol/L (3.5-5.1); SODIUM 140 mmol/L (136-145); UREA NITROGEN 14 mg/dL (7-18); eGFR NON AFRICAN AMERICAN > 90 mL/min (90-120)
[2020-01-09] VITALS (15 sets, daily range): BP systolic 134–165; BP diastolic 84–106; Ht 175.3 cm; Wt 116.6 kg
--- NOTE | 2020-01-09 09:29 | NUR ---
PATIENT POSITIONED PRONE WITH HUERTA HEADREST, ALL AREAS CHECKED PADDED AND SECURED WITH NO IMPINGEMENTS ROLLUNDER CHEST AND AXILLAS, ROLLS IN BILATERAL GROIN AREAS, PILLOWS UNDER LEGS AND FEET, DR TRAN PRESENT AND ASSISTING WITH POSITION, ALEXANDER.
--- NOTE | 2020-01-09 13:15 | NUR ---
PT ARRIVED ON UNIT VIA BED, HOOKED TO MONITORS, PT IS ALERT AND ORIENTED, ON RA WITH 97% O2 SAT. INCISION TO BACK OF NECK, NO REDNESS OR SWELLING NOTED, GENARO DRAIN NOTED WITH BLOODY DRAINAGE,
[2020-01-09 13:52] LABS: BASOPHILS 0.1 % (0-2); EOSINOPHILS 0.5 % (0-7); HEMOGLOBIN 12.2 g/dL (13.5-17.5); IMMATURE GRANULOCYTES 0.1 % (0-5); LYMPHOCYTES 7.6 % (15-50); MCH 29.4 pg (26.0-34.0); MCHC 34.9 g/dL (31.0-37.0); MCV 84.3 fL (80.0-100.0); MEAN PLATELET VOLUME 9.4 fL (7.4-10.4); MONOCYTES 1.1 % (2-11); NEUTROPHILS 90.6 % (40-80); PLATELET COUNT 224 10x3/uL (130-400); RBC 4.15 10x6/uL (4.20-6.10); RDW 14.2 % (11.5-14.5); WBC 7.4 10x3/uL (4.8-10.8)
--- NOTE | 2020-01-09 15:30 | NUR ---
REASSESSMENT COMPLETE, NO CHANGES NOTED, PT RESTING AT THIS TIME, VSS, CALL LIGHT IN REACH
--- NOTE | 2020-01-09 17:15 | NUR ---
SUPPER TRAY GIVEN TO PT, NO OTHER NEEDS NOTED AT THIS TIME
--- NOTE | 2020-01-09 19:00 | NUR ---
REPORT RECIEVED FROM THE OFF GOING RN. SEE ASSESSMENT IN THE PTS FLOW SHEET. PT A&O X4. POSTERIOR NECK INCISION DRESSING C/D/I. GENARO X1 NOTED TO POSTERIOR NECK. COMPRESSED WITH BLOODY DRAINAGE NOTED. PT DENIES PAIN AT THIS TIME. PT REQUESTED WATER AND ICE CREAM AND IT WAS PROVIDED. NO DYSPHAGIA NOTED. VSS AT THIS TIME. PT IN A PLEASANT MOOD. CALL LIGHT IN REACH. WILL CONT POC.
--- NOTE | 2020-01-09 21:15 | NUR ---
PT TACHYCARDIC. PT HOME MEDS NOT RESTARTED. WENT OVER MED LIST WITH DR TRAN. RESTART HOME MEDS EXECPT HOME ABT AND PLAVIX.
--- NOTE | 2020-01-09 23:00 | NUR ---
REASSESSMENT COMPLETED. SEE FLOW SHEET.
[2020-01-10] VITALS (19 sets, daily range): BP systolic 124–168; BP diastolic 80–107
--- NOTE | 2020-01-10 01:00 | NUR ---
PT RELAXING WITH HIS EYES CLOSED. VSS. CALL LIGHT IN REACH. WILL CONT POC.
--- NOTE | 2020-01-10 03:00 | NUR ---
REASSESSMENT COMPLETED. SEE FLOW SHEET. CALL LIGHT IN REACH. WILL CONT POC.
--- NOTE | 2020-01-10 05:00 | NUR ---
PT DENIES PAIN AT THIS TIME. CALL LIGHT IN REACH. WILLC ONT POC
--- NOTE | 2020-01-10 07:05 | NUR ---
REPORT RECIEVED, SHIFT ASSESSMENT COMPLETE, PT IS ALERT AND ORIENTED, ON RA WITH 97% O2 SAT. ALL PPP, VSS, CALL LIGHT IN REACH
--- NOTE | 2020-01-10 09:00 | NUR ---
NO NEEDS NOTED AT THIS TIME, WILL CON'T TO MONITOR
--- NOTE | 2020-01-10 11:15 | NUR ---
REASSESSMENT COMPLETE, NO CHANGES NOTED, WILL CON'T TO MONITOR
--- NOTE | 2020-01-10 17:41 | MORECARE ---
CASE MANAGEMENT DISCHARGE SUMMARY PATIENT: JUAN ISABEL ROSALINDA UNIT: [id number] ADM DATE: 01/09/20 AGE: 59 : 58 SEX: M ROOM/BED: D.2302 AUTHOR: BRYNN CASTILLO PHYSICIAN: REFERRING PHYSICIAN: LESLI TRAN MD DATE OF SERVICE: 01/10/20 Discharge Plan Patient Name: JUAN ISABEL [facility] [facility] 1960 Planned Disposition: Home Anticipated Discharge Date: Discharge Date: Expected LOS: Initial Reviewer: [email or web address] Initial Review Date: 01/09/2020 Generated: 01/10/20 6:40 pm DCPIA - Discharge Planning Initial Assessment Updated by [email or web address]: Elsy Maya on 01/10/20 5:39 pm * Is the patient Alert and Oriented? Yes * How many steps to enter\exit or inside your home? * PCP RICKIE * Pharmacy [facility] * Preadmission Environment Home with Family * ADLs Independent * Equipment Cane * List name and contact numbers for known caregivers / representatives who currently or will assist patient after discharge: VANESSA ISABEL - SPOUSE- [phone] * Verbal permission to speak to the caregivers and representatives has been obtained from the patient. Yes * Community resources currently utilized None * Additional services required to return to the preadmission environment? No * Can the patient safely return to the preadmission environment? Yes * Has this patient been hospitalized within the prior 30 days at any hospital? No Patient Name: JUAN ISABEL Page [id number] at 1741 All edits/amendments must be made on the electronic document DICTATION DATE: 01/10/201739 FRENCH DRAWER: DIONICIO 01/10/201739 RPT#: [id number] DC DATE: STATUS: ADM IN [facility] [address] [place] [address] END OF REPORT
--- NOTE | 2020-01-10 17:48 | MORECARE ---
CASE MANAGEMENT DISCHARGE SUMMARY PATIENT: JUAN ISABEL ROSALINDA UNIT: [id number] ADM DATE: 01/09/20 AGE: 59 : 58 SEX: M ROOM/BED: D.2302 AUTHOR: BRYNN CASTILLO PHYSICIAN: REFERRING PHYSICIAN: LESLI TRAN MD DATE OF SERVICE: 01/10/20 Discharge Plan Patient Name: JUAN ISABEL Facility: [facility]:[place] : 1960 Planned Disposition: Home Anticipated Discharge Date: Discharge Date: Expected LOS: Initial Reviewer: [email or web address] Initial Review Date: 01/09/2020 Generated: 01/10/20 6:48 pm Comments DCP- Discharge Planning Updated by [email or web address]: Elsy Maya on 01/10/20 4:[address] Patient Name: JUAN ISABEL Admission Status: Elective Accout number: [id number] Admission Date: 01-09-2020 : 1960 Admission Diagnosis: Attending: LESLI TRAN Current LOS: 1 Anticipated DC Date: Planned Disposition: Home Primary Insurance: MEDICARE A & B Discharge Planning Comments: CM spoke with patient to complete initial dc planning assessment. CM educated patient on the CM role and verbal consent given by patient to complete assessment. Patient lives at home with spouse where he is independent with his care. At discharge plans to return home. CM discussed availability of home health, rehab services, and medical equipment. Patient states he has a walking stick . Patient will have family to transport him home. Patient denies any known discharge needs at this time. CM will continue to follow and will assist as needed with dc plans/needs. Trace Clerk: Elsy Maya DCPIA - Discharge Planning Initial Assessment Updated by [email or web address]: Elsy Maya on 01/10/20 5:39 pm * Is the patient Alert and Oriented? Yes * How many steps to enter\exit or inside your home? * PCP RICKIE * Pharmacy [facility] * Preadmission Environment Home with Family * ADLs Independent * Equipment Cane * List name and contact numbers for known caregivers / representatives who currently or will assist patient after discharge: VANESSA ISABEL - SPOUSE- [phone] * Verbal permission to speak to the caregivers and representatives has been obtained from the patient. Yes * Community resources currently utilized None * Additional services required to return to the preadmission environment? No * Can the patient safely return to the preadmission environment? Yes * Has this patient been hospitalized within the prior 30 days at any hospital? No Last DP export: 01/10/20 4:41 p Patient Name: JUAN ISABEL Page [phone] at 1748 All edits/amendments must be made on the electronic document DICTATION DATE: 01/10/201747 ROUGHER HELPER: DIONICIO 01/10/201747 RPT#: [id number] DC DATE: STATUS: ADM IN [facility] [address] [place] [address] END OF REPORT
--- NOTE | 2020-01-10 19:00 | NUR ---
ASSESSMENT COMPLETED. SITTING UP IN BED. DENIES ANY NEEDS. BREATHING ROOM AIR. REFUSED CHG BATH
--- NOTE | 2020-01-10 21:00 | NUR ---
INDEPENDENT WITH REPOSITIONING. VSS, DENIES ANY NEEDS.
--- NOTE | 2020-01-10 23:00 | NUR ---
DENIES ANY NEEDS. VSS. CALL LIGHT IN REACH
[2020-01-11] VITALS (9 sets, daily range): BP systolic 136–167; BP diastolic 94–117
--- NOTE | 2020-01-11 01:00 | NUR ---
EYES CLOSED, EASILY WAKES. DENIES ANY NEEDS
--- NOTE | 2020-01-11 03:00 | NUR ---
EYES CLOSED, VSS. CALL LIGHT IN REACH
--- NOTE | 2020-01-11 05:00 | NUR ---
C/O NECK PAIN. CALL LIGHT IN REACH. INDEPENDENT WITH REPOSITIONING
--- NOTE | 2020-01-11 10:05 | NUR ---
0700 REPORT REVIEVED AND CARE ASSUMED OF PATIENT PT IS AWAKE AND ALERT 0800 BREAKFAST SERVED AND PATIENT IS FEEDING SELF 0900 MEDS GIVEN.. 100% BREAKFAST EATEN
--- NOTE | 2020-01-11 15:03 | NUR ---
1500 POST MORTUM CARE DONE CONTINUE TO WAIT ON [facility] HOME TO CALL
--- NOTE | 2020-01-11 15:52 | NUR ---
1545 REPORT RECIEVED AND CARE ASSUMED OF PATIENT..
--- NOTE | 2020-01-11 16:06 | NUR ---
1130 PHYSICAL THERAPY IN TO AMBULATSOFT COLLAR ON .. OOB IN CHAIR.. 1230 BACK IN BED AND LUNCH SERVED FEEDING SELF.. 1330 100% DIET CONSUMED.. 1430 DOS SANTOS CATH DCd AND PIV SALINE LOCKED AT THIS TIME.. 1545 DR MARC CERDA.. RETURNED CALL ORDER TO HERBER GENARO DRAIN AND HE IS ON HIS WAY INTO HOSPITAL TO DC PT... 1600 GENARO DCd PT TOLERATED WELL I AND O DONE
[2020-01-11] MEDS ORDERED: HYDROCODON-ACE1 EA10 PO (16:29)
--- NOTE | 2020-01-11 17:41 | NUR ---
1645 DR TRAN IN TO SEE PATIENT AND DC ORDERS RECIEVED AFTER PATIENT AMBULATED FOR HIM IN UNIT.. 1715 DISCHARGE INSTRUCTIONS GIVEN TO PATIENT.. 1730 PT DRESSED SELF.. DIET SERVED FEEDING SELF.. 1745 PT TRANSPORTED TO ENTRANCE VIA WHEELCHAIR FOR TRANSPORT HOME IN PVT VEHICLE
--- NOTE | 2020-01-13 09:13 | MORECARE ---
CASE MANAGEMENT DISCHARGE SUMMARY PATIENT: JUAN ISABEL ROSALINDA UNIT: [id number] ADM DATE: 01/09/20 AGE: 59 : 58 SEX: M ROOM/BED: D.2302 AUTHOR: ANNADOC PHYSICIAN: REFERRING PHYSICIAN: LESLI TRAN MD DATE OF SERVICE: 01/13/20 Discharge Plan Patient Name: JUAN ISABEL Facility[facility]:[place] : 1960 Planned Disposition: Home Anticipated Discharge Date: Discharge Date: 01/11/2020 Expected LOS: Initial Reviewer: [email or web address] Initial Review Date: 01/09/2020 Generated: 01/13/20 10:12 am Comments DCP- Discharge Planning Updated by [email or web address]: Elsy Maya on 01/10/20 4:[address] Patient Name: JUAN ISABEL Admission Status: Elective Accout number: [id number] Admission Date: 01-09-2020 : 1960 Admission Diagnosis: Attending: LESLI TRAN Current LOS: 1 Anticipated DC Date: Planned Disposition: Home Primary Insurance: MEDICARE A & B Discharge Planning Comments: CM spoke with patient to complete initial dc planning assessment. CM educated patient on the CM role and verbal consent given by patient to complete assessment. Patient lives at home with spouse where he is independent with his care. At discharge plans to return home. CM discussed availability of home health, rehab services, and medical equipment. Patient states he has a walking stick . Patient will have family to transport him home. Patient denies any known discharge needs at this time. CM will continue to follow and will assist as needed with dc plans/needs. Travel Agency Manager: Elsy Maya DCPIA - Discharge Planning Initial Assessment Updated by [email or web address]: Elsy Maya on 01/10/20 5:39 pm * Is the patient Alert and Oriented? Yes * How many steps to enter\exit or inside your home? * PCP RICKIE * Pharmacy [facility] * Preadmission Environment Home with Family * ADLs Independent * Equipment Cane * List name and contact numbers for known caregivers / representatives who currently or will assist patient after discharge: VANESSA ISABEL - SPOUSE- [phone] * Verbal permission to speak to the caregivers and representatives has been obtained from the patient. Yes * Community resources currently utilized None * Additional services required to return to the preadmission environment? No * Can the patient safely return to the preadmission environment? Yes * Has this patient been hospitalized within the prior 30 days at any hospital? No Last DP export: 01/10/20 4:48 p Patient Name: JUAN ISABEL Page [phone] at 0913 All edits/amendments must be made on the electronic document DICTATION DATE: 01/13/20911 RELAY OPERATOR: DIONICIO 01/13/20911 RPT#: [id number] DC DATE:01/11/20 STATUS: DIS IN [facility] [address] [place] [address] END OF REPORT
--- NOTE | 2020-01-14 17:18 | OP ---
PATIENT NAME: JUAN ISABEL MEDICAL RECORD: [id number] :58 LOCATION:[facility] D.2302 ADMISSION DATE:01/09/20 SURGEON: LESLI COLBERT MD DATE OF OPERATION: 01/09/2020 PREOPERATIVE DIAGNOSES: Severe cervical canal stenosis at C3, C4 and C5. PROCEDURE: Laminoplasty at C3, C4 and C5. SURGEON: Lesli Colbert MD DESCRIPTION OF TECHNIQUE: After induction of general endotracheal anesthesia, the patient was placed in [place] head pins and rolled prone on chest and hip rolls. The posterior neck was prepped and draped in usual sterile fashion. Fluoroscopic x-ray and spinal needle localized the C3-C4 interspace. A midline skin incision was carried out from the spinous processes C3-C6. The ligamentum nuchae was dissected in the midline with a Bovie cautery. Next, using a Bovie cautery, the spinous processes and lamina of the C3, C4 and C5 were exposed in a subperiosteal manner and level was confirmed with fluoroscopic x-ray. On the right side, the lamina at C3, C4, and C5 was removed with Midas Moses drill. On the right side, an 8 mm portion of the lamina was removed with a Midas-Moses drill at the corticomedullary and Op-Site cortical surface. The lamina at C3, C4 and C5 were tilted upwards to create a greenstick fracture at each level. Next, interposing plate from [email or web address] was used to the anchor the spinous processes and I tilted upward to that position approximately 45 degrees. Self-drilling screws were placed in the holes at each plate on both sides. Following this, the fluoroscopic x-ray confirmed good position of the hardware. The dura was decompressed well. Meticulous hemostasis was maintained throughout the wound. Wound was irrigated with copious amounts of Ancef irrigant solution. The fascia and ligamentum nuchae was reapproximated with interrupted 3-0 Vicryl suture. The subdermal layer was closed with interrupted 3-0 Vicryl sutures. Skin was closed with cyn. A sterile dressing was applied to the wound. The patient was awakened in good condition and taken to recovery. All counts were reported as correct. Estimated blood loss was minimal. TRANSINT:[id number] Voice Confirmation ID: [id number] DOCUMENT ID: [id number] LESLI COLBERT MD at 1718 CC: [id number] DICTATION DATE: 01/13/2026 AIRCRAFT LANDING GEAR INSPECTOR: 01/13/20 0911 DIS IN 01/11/20 [place] [id number] [place] [id number]
== END 2020-01-11 17:45 | disposition home or self-care (01) | DRG 517 ==
LOC: D.SDCHOLD 01-09 05:23 → D.ICU 01-09 05:23 → D.M2 01-09 07:30 → D.ICU 01-09 12:47
PROVIDERS: Anesthesiology; ADMIT Neurological Surgery; ATTEND Neurological Surgery
PROC: 0PH304Z Insertion of Internal Fixation Device into Cervical Vertebra, Open Approach (ICD-10-PCS; principal; 2020-01-09 07:30)
DX: M48.02 Spinal stenosis, cervical region (principal); I10 Essential (primary) hypertension; K21.9 Gastro-esophageal reflux disease without esophagitis; I25.10 Atherosclerotic heart disease of native coronary artery without angina pectoris; E78.5 Hyperlipidemia, unspecified

== ENCOUNTER 2020-12-16 07:01 | Day surgery (SDC) | payer MEDICARE, OTHER ==
[2020-12-11 11:24] LABS: BASOPHILS 0.5 % (0-2); HEMATOCRIT 38.3 % (42.0-54.0); HEMOGLOBIN 13.7 g/dL (13.5-17.5); IMMATURE GRANULOCYTES 0.2 % (0-5); LYMPHOCYTE ABS# 1.84 10x3/uL (1.32-3.57); MCH 29.8 pg (26.0-34.0); MCHC 35.8 g/dL (31.0-37.0); MCV 83.3 fL (80.0-100.0); MEAN PLATELET VOLUME 8.7 fL (7.4-10.4); MONOCYTES 8.7 % (2-11); NEUTROPHIL ABS# 3.92 10x3/uL (1.78-5.38); NEUTROPHILS 59.6 % (40-80); PLATELET COUNT 230 10x3/uL (130-400); RDW 13.9 % (11.5-14.5); WBC 6.6 10x3/uL (4.8-10.8)
[2020-12-11 12:08] LABS: CALC OSMOLALITY 281 mosm/kg (275-300); CALCIUM 9.5 mg/dL (8.5-10.1); CARBON DIOXIDE 30.2 mmol/L (21.0-32.0); CHLORIDE - SERUM 101 mmol/L (98-107); CREATININE - SERUM 0.8 mg/dL (0.6-1.3); GLUCOSE 135 mg/dL (74-106); POTASSIUM - SERUM 3.3 mmol/L (3.5-5.1); SODIUM 140 mmol/L (136-145); UREA NITROGEN 14 mg/dL (7-18); eGFR NON AFRICAN AMERICAN > 90 mL/min (90-120)
[~2020-12-16] VITALS: Ht 175.3 cm; Wt 102.1 kg
--- NOTE | ~2020-12-16 | OP ---
PATIENT NAME: JUAN ISABEL MEDICAL RECORD: [id number] :58 LOCATION:D.[facility] ADMISSION DATE: SURGEON: LESLI COLBERT MD DATE OF OPERATION: 12/16/2020 DATE OF SERVICE: 12/16/2020 PREOPERATIVE DIAGNOSES: Lumbar spinal stenosis and foraminal stenosis at L4-L5 and L5-S1 on the right. POSTOPERATIVE DIAGNOSES: Lumbar spinal stenosis and foraminal stenosis at L4-L5 and L5-S1 on the right. PROCEDURE: Lumbar laminectomy, medial facetectomy and foraminotomy at L4-L5 and L5-S1, right. SURGEON: Lesli Colbert MD DESCRIPTION OF PROCEDURE: After induction of general endotracheal anesthesia, the patient was rolled prone on a Mirza frame. Lumbar spine was prepped and draped in usual sterile fashion. Fluoroscopic x-ray localized the level. A microscope and Midas Moses drill were used to perform a laminectomy, medial facetectomy, and foraminotomy at L4-L5 and L5-S1 on the right. Hypertrophied ligamentum flavum was removed with the Cloward rongeurs. Retractor was removed. The fascia was closed with 2-0 Vicryl sutures. Subdermal layer was closed with 3-0 Vicryl sutures. The skin was closed with cyn. A sterile dressing was applied to the wound. The patient was awakened in good condition and taken to recovery. All counts were reported as correct. ESTIMATED BLOOD LOSS: Minimal. TRANSINT:[id number] Voice Confirmation ID: [id number] DOCUMENT ID: [id number] LESLI COLBERT MD CC: [id number] DICTATION DATE: 01/04/21 0947 MANAGER RECRUITMENT: 01/04/21 1147 [facility] 12/16/20 [place] [id number]
[~2020-12-16 07:01] MED LIST changes: +COZAAR100 MG PO; +HCTZ25 MG PO; +HYDROCODON-ACE1 EA10 PO; +ISOSORBIDE MONO30 M1 PO; +K-TAB10 MEQ PO
[2020-12-16] MEDS ORDERED: CEPHALEXIN500 M1 PO (09:16)
[2020-12-16 09:18] VITALS: BP 135/95; Ht 175.3 cm; Wt 102.1 kg
--- NOTE | 2020-12-16 11:31 | NUR ---
PATIENT POSITIONED PRONE ALL AREAS PADDED AND SECURED WITH NO IMPINGEMENTS-GENITAL CHECKED, PATIENT HAS SEVERE REDNESS AND SCALING OF BILATERAL LOWER LEGS, WHEN ASKED STATED HAS PSORASIS, REDNESS AND SMALL LESION AREAS ALL OVER BODY, DR TRAN AWARE AND NOTIFIED, ALEXANDER.
--- NOTE | 2020-12-16 12:48 | NUR ---
PT SLEEPING STATES NO PAIN WHEN ASKED.
[2020-12-16] MEDS ORDERED: HYDROCODON-ACE1 EA10 PO (13:45)
[2020-12-16] MEDS ORDERED: MEDROL DOSE PACK4 MG PO (13:45)
--- NOTE | 2020-12-16 13:54 | NUR ---
1346 DR. MARC AVILEZ, RX GIVEN.
--- NOTE | 2020-12-16 15:49 | NUR ---
1545 ICE TEA MADE AND SERVED PT. PER HIS REQUEST.
--- NOTE | 2020-12-16 16:20 | NUR ---
1620 PT REQUESTS ANOTHER ICE TEA, SERVED, STATES HE USUALLY ONLY VOIDS TWICE A DAY AND HAS VOIDED ONCE TODAY ALREADY, STATES HAS NO PAIN IN BLADDER AREA. PT. IS AMBULATORY AT WILL.
--- NOTE | 2020-12-16 16:25 | NUR ---
ASSUMED CARE OF PT FROM YARY SUTTON RNN.
--- NOTE | 2020-12-16 16:50 | NUR ---
PT ABLE TO VOID. IV THEN DC'D WITH CATH TIP INTACT AND PT GETTING DRESSED FOR DISCHARGE. DRESSING TO LUMBAR AREA REMAINS INTACT WITH SHADOW DRAINAGE NOTED.
--- NOTE | 2020-12-16 16:56 | NUR ---
DISCHARGED VIA W/C, ACCOMPANIED BY THIS NURSE AND PT'S SPOUSE, TO POV WITH SPOUSE DRIVING. ALL BELONGINGS WITH PT/SPOUSE.
== END 2020-12-16 16:56 | disposition home or self-care (01) ==
LOC: D.OPS 07:01
PROVIDERS: Anesthesiology; ATTEND Neurological Surgery
DX: M48.061 Spinal stenosis, lumbar region without neurogenic claudication (principal); M48.07 Spinal stenosis, lumbosacral region; M54.16 Radiculopathy, lumbar region; I10 Essential (primary) hypertension

== ENCOUNTER 2021-02-22 05:20 | Day surgery (SDC) | payer MEDICARE, OTHER ==
[2021-02-22] VITALS (13 sets, daily range): BP systolic 103–139; BP diastolic 69–87; Ht 175.3 cm; Wt 102.3 kg
[~2021-02-22] VITALS: Ht 175.3 cm; Wt 102.3 kg
[~2021-02-22 05:20] MED LIST changes: +CEPHALEXIN500 M1 PO; +MEDROL DOSE PACK4 MG PO
[2021-02-22 06:08] LABS: BASOPHILS 0.8 % (0-2); HEMATOCRIT 37.1 % (42.0-54.0); HEMOGLOBIN 13.1 g/dL (13.5-17.5); LYMPHOCYTES 32.2 % (15-50); MCH 29.3 pg (26.0-34.0); MCHC 35.4 g/dL (31.0-37.0); MCV 82.8 fL (80.0-100.0); MONOCYTES 9.2 % (2-11); NEUTROPHILS 54.8 % (40-80); PLATELET COUNT 264 10x3/uL (130-400); RBC 4.48 10x6/uL (4.20-6.10); RDW 13.7 % (11.5-14.5); WBC 7.8 10x3/uL (4.8-10.8)
[2021-02-22 06:14] LABS: CALC OSMOLALITY 281 mosm/kg (275-300); CALCIUM 8.9 mg/dL (8.5-10.1); CARBON DIOXIDE 27.9 mmol/L (21.0-32.0); CHLORIDE - SERUM 102 mmol/L (98-107); CREATININE - SERUM 0.9 mg/dL (0.6-1.3); GLUCOSE 136 mg/dL (74-106); POTASSIUM - SERUM 3.2 mmol/L (3.5-5.1); SODIUM 139 mmol/L (136-145); UREA NITROGEN 18 mg/dL (7-18); eGFR NON AFRICAN AMERICAN > 90 mL/min (90-120)
--- NOTE | 2021-02-22 10:44 | NUR ---
BROTHER CALLED TO CHECK ON PT. HAD SECURITY CODE. WAS WONDERING IF JAMILAH WAS PRESENT AND IF MORE THAN ONE PERSON COULD VISIT. THESE QUESTIONS WERE ANSWERED. TOLD HIM HE WOULD BE ALLOWED TO ASSIST HIS MOTHER TO THE ROOM. CL IN REACH. CELL PHONE IN REACH. ICE PACK TO RIGHT NECK. PT VERBALIZED UNDERSTANDING TO CALL FOR ASSISTANCE GETTING UP THE FIRST FEW TIMES AND THAT HE DOES HAVE A URINAL. ROBAXIN GIVEN FOR COMFORT AND ANY POSSIBLE SPASMS. TOLD PT TO KEEP HOB AT OR ABOVE 30* TO HELP WITH SWELLING. SCD'S ON AND TURNED ON. SANTORO POPSICLE AND FRESH WATER GIVEN. TM
--- NOTE | 2021-02-22 18:23 | NUR ---
PT IN BED. STATES PAIN IS MANAGABLE. CL IN REACH. NO NEEDS AT THIS TIME. WCTM
[2021-02-23] VITALS: BP 123/77
[2021-02-23 04:00] VITALS: BP 126/77
--- NOTE | 2021-02-23 06:11 | NUR ---
I have reviewed this patient and I concur with the Shift Assessment completed by the Licensed Practical Nurse today this shift.
--- NOTE | 2021-02-23 08:30 | NUR ---
PATIENT IN BED WITH IV INTACT. NO COMPLAINTS OR SIGNS OF DISTRESS. INCISION CLEAN AND DRY. CALL LIGHT WITHIN REACH.
[2021-02-23 08:45] VITALS: BP 133/80
[2021-02-23] MEDS ORDERED: HYDROCODON-ACE1 EA10 PO (08:52)
[2021-02-23] MEDS ORDERED: MEDROL DOSE PACK4 MG PO (08:53)
[2021-02-23 12:00] VITALS: BP 164/77
--- NOTE | 2021-02-23 14:27 | NUR ---
PATIENT RECIEVED DC INSTRUCTIONS. IV REMOVED WITH CATH TIP INTACT. NO QUESTIONS AT THIS TIME. EXPLAINED TO PATIENT HE NEEDED TO MERCHANDISE FLOW MANAGER HIS SCRIPT FROM DR. TRAN'S OFFICE. VERBALIZED UNDERSTANDING. WAITING ON TRANSPORTATION FOR DC. CALL LIGHT WITHIN REACH.
--- NOTE | 2021-02-23 15:00 | NUR ---
PATIENT ESCORTED OUT OF HOSPITAL VIA WC WITH PERSONAL BELONGINGS TO PRIVATE VEHICLE.
--- NOTE | 2021-02-25 09:07 | OP ---
PATIENT NAME: JUAN ISABEL MEDICAL RECORD: [id number] :58 LOCATION:D.[facility] ADMISSION DATE: SURGEON: LESLI COLBERT MD DATE OF OPERATION: 02/22/2021 PREOPERATIVE DIAGNOSES: Osteophyte formation and disc herniation at C5-C6 with spinal cord compression, cervical myelopathy, previous anterior cervical discectomy and fusion at C4-C5. POSTOPERATIVE DIAGNOSES: Osteophyte formation and disc herniation at C5-C6 with spinal cord compression, cervical myelopathy, previous anterior cervical discectomy and fusion at C4-C5. SURGEON: Lesli Colbert MD PROCEDURE: Anterior cervical discectomy and fusion at C5-C6 with PEEK interbody cage, separate anterior cervical plate and screws from [employer], removal of hardware at C4-C5, removal of the osteophytes. DESCRIPTION OF TECHNIQUE: After induction of general endotracheal anesthesia, the patient was positioned supine on the operating table. Neck was prepped and draped in the usual sterile fashion. Fluoroscopic x-ray and freer localized the C5-C6 interspace and the previous hardware. After infiltration of 1:100,000 epinephrine with 1% lidocaine, a transverse skin incision was carried out with a #15 blade. Sharp dissection was proceeded through the platysma muscle. I proceeded in avascular plane medial to the carotid sheath. The C5-C6 interspace was identified with fluoroscopic x-ray and spinal needle. The prior anterior cervical plate and screws was dissected free of scar tissue. The locking cams were released. The screws were backed out of the plate. The plate was removed as well as the screws and sent to pathology for gross only. Next, a self-retaining retractor was placed deep to the longus colli muscles. The [place] pins were placed in the bodies of C5 and C6. Disc space was incised under distraction. The disc material was removed with the pituitary rongeurs and curettes as well as the cartilaginous endplates. Osteophytes were drilled away posteriorly with Midas Moses drill under microscopic illumination. The posterior longitudinal ligament was removed with Cloward rongeurs. Following this, the dura was decompressed well. A PEEK interbody cage was placed in the disc space under distraction. Prior to this, it was filled with Barbi bone allograft. A [employer] medical plate and screws was placed in the midline. Self-drilling screws were placed through the holes in the plate. Locking cams were tightened down over the screw heads. Good position of the hardware was confirmed with fluoroscopic x-ray. Meticulous hemostasis was maintained throughout the wound. The wound was irrigated with copious amounts of Ancef irrigant solution. The platysma and subdermal layers were closed with interrupted 4-0 Vicryl suture. The skin was reapproximated with Steri-Strips and benzoin. A sterile dressing was applied to the wound. The patient was awakened in good condition and taken to recovery. All counts were reported as correct. Estimated blood loss was minimal. TRANSINT:[id number] Voice Confirmation ID: [id number] DOCUMENT ID: [id number] OPERATIVE REPORT [id number] JUAN ISABEL JOHN MD at 0907 CC: [id number] DICTATION DATE: 02/22/21 0931 HAND PAINT MIXER: 02/22/21 1237 [facility] 02/23/[address] [id number]
== END 2021-02-23 15:00 | disposition home or self-care (01) ==
LOC: D.OPS 05:20 → D.MS 05:20 → D.OPS 07:00 → D.MS 09:01 → D.OPS 02-23 15:00
PROVIDERS: Anesthesiology; ATTEND Neurological Surgery
DX: M50.03 Cervical disc disorder with myelopathy, cervicothoracic region (principal); M25.78 Osteophyte, vertebrae; Z98.890 Other specified postprocedural states; G95.9 Disease of spinal cord, unspecified; G95.20 Unspecified cord compression

== ENCOUNTER → 2021-03-17 08:20 | Outpatient (CLI) | payer MEDICARE ==
[2021-02-22 10:31] VITALS: BMI 33.3
== END | disposition home or self-care (01) ==
LOC: D.MRI 08:00
PROVIDERS: ATTEND Family Medicine
DX: N28.89 Other specified disorders of kidney and ureter (principal)